=== PATIENT | female | born 1945 | race Caucasian/White ===

== ENCOUNTER 2016-05-31 09:50 | Outpatient (CLI) | payer MEDICARE, SELFPAY ==
[2016-05-31 11:24] LABS: #Basophils 0.1 thou/uL (0.0-0.2); #Eosinphils 0.3 thou/uL (0.0-0.7); #Lymphocytes 1.9 thou/uL (1.20-3.40); #Monocytes 0.6 thou/uL (0.11-0.59); #Neutrophils 5.2 thou/uL (1.40-6.50); %Eosinophils 4.1 % (0.0-10.0); %Lymphocytes 23.8 % (21.0-51.0); %Monocytes 7.3 % (0.0-10.0); %Neutrophils 63.9 % (42.0-75.0); Hemoglobin 15.4 g/dL (12.0-16.0); Mean Corpuscular HGB CONC 33.6 g/dL (32.0-36.0); Mean Corpuscular Volume 86.6 fl (81.0-99.0); Mean Platelet Volume 7.1 fL (7.4-10.4); Platelet Count 190 thou/uL (130-400); RBC Distribution Width 14.4 % (11.5-14.5); Red Blood Cell (RBC) Count 5.29 mill/uL (4.20-5.40); White Blood Cell (WBC) Count 8.1 thou/uL (4.8-10.8)
[2016-05-31 11:37] LABS: ALT (SGPT) 12 U/L (0-55); AST (SGOT) 13 U/L (5-34); Albumin 4.1 g/dL (3.4-4.8); Alkaline Phosphatase 86 U/L (40-150); Anion Gap 15 mmol/L (10-20); BUN (Urea Nitrogen) 12 mg/dL (9.8-20.1); Bilirubin, Total 0.4 mg/dL (0.2-1.2); Calc. Creatinine Clearance 0 mL/min (70-130); Carbon Dioxide 28 mmol/L (23-31); Cardiac Risk 3.6 (Less than 4.5); Chloride 100 mmol/L (98-107); Cholesterol 136 mg/dL (< 200 Desired); Estimated GFR-MDRD 70; Globulin 2.9 g/dL (2.4-3.5); Glucose 99 mg/dL (80-115); HDL Cholesterol 38 mg/dL (>60 Neg Risk); LDL Cholesterol, Calculated 73 mg/dL; Potassium 5.4 mmol/L (3.5-5.1); Sodium 138 mmol/L (136-145); Triglycerides 124 mg/dL (Less than 150)
== END 2016-05-31 09:51 | disposition home or self-care (01) ==
LOC: HPCALD 09:50
PROVIDERS: ATTEND Family Medicine
DX: E78.2 Mixed hyperlipidemia (principal); I10 Essential (primary) hypertension
CPT/HCPCS: 36415; 80053; 80061; 84443; 85025

== ENCOUNTER 2016-07-18 06:44 | Inpatient (IN) | payer MEDICARE ==
[2016-07-18 07:27] LABS: #Basophils 0.1 thou/uL (0.0-0.2); #Eosinphils 0.1 thou/uL (0.0-0.7); #Lymphocytes 1.1 thou/uL (1.20-3.40); #Monocytes 1.1 thou/uL (0.11-0.59); #Neutrophils 9.1 thou/uL (1.40-6.50); %Eosinophils 1.2 % (0.0-10.0); %Lymphocytes 9.4 % (21.0-51.0); %Monocytes 9.5 % (0.0-10.0); %Neutrophils 78.9 % (42.0-75.0); Hemoglobin 12.4 g/dL (12.0-16.0); Mean Corpuscular HGB CONC 33.2 g/dL (32.0-36.0); Mean Corpuscular Hemoglobin 27.6 pg (27.0-31.0); Mean Platelet Volume 6.3 fL (7.4-10.4); Platelet Count 229 thou/uL (130-400); RBC Distribution Width 13.4 % (11.5-14.5); Red Blood Cell (RBC) Count 4.48 mill/uL (4.20-5.40); White Blood Cell (WBC) Count 11.5 thou/uL (4.8-10.8)
[2016-07-18 07:39] LABS: ALT (SGPT) 14 U/L (8-55); AST (SGOT) 10 U/L (5-34); Albumin 3.6 g/dL (3.4-4.8); Alkaline Phosphatase 85 U/L (40-150); Anion Gap 16 mmol/L (10-20); BUN (Urea Nitrogen) 11 mg/dL (9.8-20.1); Bilirubin, Total 0.6 mg/dL (0.2-1.2); Calc. Creatinine Clearance 0 mL/min (70-130); Calcium 8.9 mg/dL (7.8-10.44); Carbon Dioxide 25 mmol/L (23-31); Chloride 94 mmol/L (98-107); Estimated GFR-MDRD 81; Globulin 3.5 g/dL (2.4-3.5); Glucose 122 mg/dL (83-110); Potassium 4.5 mmol/L (3.5-5.1); Protein, Total 7.1 g/dL (6.0-8.3); Sodium 130 mmol/L (136-145)
[2016-07-18 07:46] LABS: CKMB 2.2 ng/mL (0-6.6); Troponin I 0.013 ng/mL (< 0.028)
[2016-07-18] MEDS ORDERED: Magnesium Sulfate 2 GM/100 ML BAG ONE (07:47)
[2016-07-18] MEDS ORDERED: methylPREDNISolone Sod Succ/PF 125 MG/2 ML VIAL ONE ×5 (07:47→07:53)
[2016-07-18] MEDS ORDERED: Sodium Chloride 0.9% 10 ML ONE (07:56)
[2016-07-18] MEDS ORDERED: Albuterol Sulfate 1.25 MG/3 ML NEB ONE ×2 (08:28→08:30)
[2016-07-18] MEDS ORDERED: Albuterol Sulfate 2.5 mg/3 ml Neb ONE (08:31)
[2016-07-18 10:38] LABS: Bilirubin Negative (Negative); Blood, Urine Negative (Negative); Clarity Clear (Clear); Glucose, Urine (Dipstick) Negative (Negative); Leukocyte Negative (Negative); Nitrite Negative (Negative); Protein, Urine (Dipstick) Negative (Neg-Trace); Specific Gravity, Urine 1.015 (1.005-1.030); Urobilinogen 0.2 mg/dL (0.2-1.0)
[2016-07-18] MEDS ORDERED: Ondansetron ODT 4 MG TAB SL PRN (10:56)
[2016-07-18] MEDS ORDERED: HYDROcodone/Acetaminophen 5/325 mg Tablet PO PRN ×2 (10:56)
[2016-07-18] MEDS ORDERED: Ondansetron HCl/PF 4 MG/2 ML Vial IVP PRN (10:56)
[2016-07-18] MEDS ORDERED: Albuterol Sulfate 2.5 mg/3 ml Neb NEB PRN (11:07)
[2016-07-18] MEDS ORDERED: Bacitracin Zinc 1 Packet ONE (12:17)
[2016-07-18 12:25] LABS: RBC/HPF 0-3 HPF (0-3)
[2016-07-18 12:26] LABS: Bacteria/HPF Rare-Few HPF (None Seen); Squamous Epithelial 0-3 HPF (0-3); WBC/HPF 0-3 HPF (0-3)
[2016-07-18 14:07] VITALS: BMI 30.7
[2016-07-18] MEDS: Dextrose 5 %-0.45 % NaCl 1,000 ML IV SCH ×2 (15:50→19:30)
--- NOTE | 2016-07-18 17:19 | HP ---
CHIEF COMPLAINT: Cough and shortness of breath. HISTORY OF PRESENT ILLNESS: Ms. Andrews is a 71-year-old female with past medical history of COPD who states that for approximately 2 weeks, she suffered from a cough productive of green sputum. However, she was visiting her daughter in [place] at a graduation and did not seek medical treatment. She has had shortness of breath throughout the duration and approximately 1 week ago started to run fever with a T-max of 102-103. She presented to the ER today for treatment. The patient was found to be hypoxic with wheezing in all selby and rhonchi in the bases with a diagnoses of presumptive community- acquired pneumonia with COPD is a comorbidity. The patient is not currently O2 dependent and is requiring O2. PAST MEDICAL HISTORY: 1. COPD. 2. Hypertension. 3. Gastroesophageal reflux disease. 4. Major depression. 5. Hyperlipidemia. 6. Personal history of colon polyps. 7. Tobacco dependency. 8. Positive fecal immunohistochemical test with subsequent colonoscopy 01/2016 with repeat recommended in 3 years. PAST SURGICAL HISTORY: 1. Left arm 2008, cholecystectomy in 2006. 2. Bilateral tubal ligation. FAMILY HISTORY: Father with diabetes and coronary artery disease, mother with diabetes and coronary artery disease. Sister with diabetes and coronary artery disease. Sister with breast cancer diagnosed in her 60s. SOCIAL HISTORY: The patient is . Smokes 1-1/2 packs of cigarettes per day. Denies alcohol or illicit drug use. She lives with her son and his . ALLERGIES: PENICILLIN. CURRENT MEDICATIONS: 1. Atorvastatin 20 mg p.o. daily. 2. Nexium 40 mg p.o. daily. 3. Lisinopril 5 mg p.o. daily. 4. Albuterol HFA two puffs q.6 hours p.r.n. REVIEW OF SYSTEMS: GENERAL: Positive fever, malaise, chills, fatigue. HEENT: Denies vision changes. Denies nasal congestion, ear pain, sore throat, rhinorrhea. CARDIOVASCULAR: Admitted to chest tightness, but no overt chest pain. The tightness is increased with cough and deep breathing. No orthopnea, PND, leg edema. RESPIRATORY: Positive wheezing, positive shortness of breath, positive dyspnea on exertion, no hemoptysis, positive sputum yellow to green in color, cough for 2 weeks. Remainder as per HPI. GASTROINTESTINAL: Denies diarrhea, vomiting, constipation, melena, hematochezia , hematemesis. No abdominal pain. GENITOURINARY: Denies dysuria, frequent urination, gross hematuria, incomplete emptying. NEUROLOGIC: Denies slurred speech, seizures, focal weakness, diplopia. LYMPHATIC: Denies any lymph node enlargement or tenderness. PSYCHIATRIC: The patient has had increased symptoms of depression since being tapered down on her antidepressants in the last couple of weeks. Denies suicidal ideation. No anxiety. HEMATOLOGIC: Denies easy bleeding or bruising. PHYSICAL EXAMINATION: VITAL SIGNS: Temperature 98.3, pulse 101, respirations 24, O2 sat 90% on 2 liters, blood pressure 165/72. GENERAL: Well-developed, slightly overweight female, in no acute distress, able to speak in complete sentences, nasal cannula in place. Alert and oriented x3. HEENT: Normocephalic, atraumatic. Pupils equal, round, and reactive to light and accommodation. Extraocular muscles intact. Nares are patent without discharge. Tongue protrudes in the midline. NECK: Supple, without lymphadenopathy, thyromegaly, JVD or bruit. HEART: Regular rate and rhythm with distant heart sounds. No murmurs, clicks, rubs, or gallops. LUNGS: With diminished air entry throughout with bibasilar rhonchi. No wheezes appreciated. ABDOMEN: Positive bowel sounds in all four quadrants, soft, nontender, nondistended, no masses, guarding, or rebound tenderness. EXTREMITIES: No cyanosis, clubbing or edema. NEUROLOGICAL: Cranial nerves II through XII grossly intact with no focal deficits. LABORATORY DATA: White count 11.5, hemoglobin 12.4, hematocrit 37.2 with 78% neutrophils, 9% lymphocytes, platelets 229. Sodium 130, potassium 4.5, chloride 94, bicarb 25, BUN 11, creatinine 0.71, glucose 122, lactic acid 0.7, calcium 8.9, AST 10, ALT 14, alkaline phosphatase 85, CK-MB 2.2, troponin I 0.013, BNP 109, total protein 7.1, urinalysis is completely negative, blood culture shows, urine culture, urinalysis are all pending, chest x-ray shows a right lower lobe, possibly a left lower lobe infiltrates, consistent with community-acquired pneumonia. Radiology read is pending. EKG showed no ischemia per ER physician. ASSESSMENT AND PLAN: 1. Community-acquired pneumonia. Blood cultures have been performed. We will try to obtain sputum for Gram stain and culture. Treat with IV Levaquin 750 mg daily, we will give supplemental O2. We will qualify for home O2 is still requiring at discharge. We will continue neb treatments. 2. Chronic obstructive pulmonary disease. The patient receives a dose of steroids in the ER. She has no further wheezing on exam at this time. We will hold off on continued steroid administration at this time. We will continue neb treatments. 3. Depression. We will restart the patient's antidepressant during this hospitalization. 4. Hypoxia. O2 as per above. 5. Gastroesophageal reflux disease. We will place on PPI. 6. Hypertension. We will continue current regimen. 7. Hyperlipidemia. We will continue the patient's statin. 8. Prophylaxes. We will place the patient on PPI and SCDs. 9. Code status. The patient desires full code status at this time. MTDD
--- NOTE | 2016-07-18 18:17 | RAD ---
PORTABLE CHEST: Date: 07-18-16 An AP portable film at 0712 is compared with a 03-10-15 study. FINDINGS: The heart is normal in size. There are infiltrative changes around the right hilum that also extend along the minor fissure. Changes are also suggested in the left lower lobe that are presumably infil trative. No large effusions are seen. The lung apices are clear. I am not convinced the vessels are really congested. The patient should be probably treated for infection and then a follow up x-ray to clearing obtained. If she does improve, than a CT should be done to better display the mediastinum and make sure there is no pathology, particularly in the right hilar region. IMPRESSION: Infiltrative changes in the right perihilar region and left lower lobe. Further follow up is require d. POS: HOME
[2016-07-18] MEDS: Atorvastatin Calcium 10 MG TAB PO SCH (20:38)
[2016-07-18] MEDS: Nicotine 14 MG PATCH TOP SCH (20:40)
[2016-07-18] MEDS: Acetaminophen 325 MG TAB PO PRN (20:44)
[2016-07-19] MEDS: Dextrose 5 %-0.45 % NaCl 1,000 ML IV SCH (00:57)
[2016-07-19] MEDS: Acetaminophen 325 MG TAB PO PRN ×3 (05:09→20:55)
[2016-07-19 06:19] LABS: #Basophils 0.1 thou/uL (0.0-0.2); #Monocytes 0.8 thou/uL (0.11-0.59); #Neutrophils 13.7 thou/uL (1.40-6.50); %Basophils 0.5 % (0.0-1.0); %Lymphocytes 6.1 % (21.0-51.0); %Monocytes 5.4 % (0.0-10.0); Hemoglobin 11.9 g/dL (12.0-16.0); Mean Corpuscular Hemoglobin 27.8 pg (27.0-31.0); Mean Corpuscular Volume 84.3 fl (81.0-99.0); Mean Platelet Volume 6.8 fL (7.4-10.4); Platelet Count 244 thou/uL (130-400); RBC Distribution Width 13.3 % (11.5-14.5); Red Blood Cell (RBC) Count 4.29 mill/uL (4.20-5.40); White Blood Cell (WBC) Count 15.6 thou/uL (4.8-10.8)
[2016-07-19 06:22] LABS: Anion Gap 16 mmol/L (10-20); BUN (Urea Nitrogen) 10 mg/dL (9.8-20.1); Calc. Creatinine Clearance 102 mL/min (70-130); Carbon Dioxide 25 mmol/L (23-31); Chloride 96 mmol/L (98-107); Estimated GFR-MDRD 81; Glucose 134 mg/dL (83-110); Potassium 5.3 mmol/L (3.5-5.1); Sodium 132 mmol/L (136-145)
--- NOTE | 2016-07-19 07:29 | RAD ---
CHEST 2 VIEWS: DATE: 07/19/16. COMPARISON: Comparison is made with the 07/18 study. PA and lateral views show infiltrative changes in the lingu la on the left and some in the right perihilar region and along the minor fissure. The right hilum is still a little prominent in size. There could be some adenopathy here. Pneumonia is presumed as the cause of these findings. Changes since yesterday are minimal. The vasculature seems a little less prominent on today's film than yesterday, so there also could have been a very slight congestiv e element. The heart size is normal today. There are no effusions. IMPRESSION: Infiltrative changes as noted. Little change since yesterday, except the vasculature may be a littl e less prominent. The patient needs to be followed to complete resolution, and if that does not occ ur, then a CT should be done. POS: HOME
[2016-07-19] MEDS ORDERED: Lisinopril 5 MG TAB PO SCH (09:00)
[2016-07-19] MEDS ORDERED: Simethicone Chewable 80 MG TAB PO PRN (09:00)
[2016-07-19] MEDS: Escitalopram Oxalate 20 mg Tablet PO SCH (09:12)
[2016-07-19] MEDS: Aspirin 325 MG TAB PO SCH (09:12)
[2016-07-19] MEDS: UMECLIDINIUM BRM INH SCH (09:14)
[2016-07-19] MEDS: VILANTEROL TR INH SCH (09:14)
[2016-07-19] MEDS: Nicotine 14 MG PATCH TOP SCH (20:49)
[2016-07-19] MEDS: Atorvastatin Calcium 10 MG TAB PO SCH (20:50)
[2016-07-20 06:37] LABS: #Basophils 0.1 thou/uL (0.0-0.2); #Eosinphils 0.1 thou/uL (0.0-0.7); #Lymphocytes 1.4 thou/uL (1.20-3.40); #Monocytes 0.6 thou/uL (0.11-0.59); #Neutrophils 7.1 thou/uL (1.40-6.50); %Basophils 1.4 % (0.0-1.0); %Eosinophils 0.8 % (0.0-10.0); %Lymphocytes 15.3 % (21.0-51.0); %Monocytes 6.7 % (0.0-10.0); %Neutrophils 75.8 % (42.0-75.0); Hemoglobin 12.8 g/dL (12.0-16.0); Mean Corpuscular HGB CONC 32.8 g/dL (32.0-36.0); Mean Corpuscular Hemoglobin 27.9 pg (27.0-31.0); Mean Platelet Volume 6.2 fL (7.4-10.4); Platelet Count 289 thou/uL (130-400); RBC Distribution Width 13.3 % (11.5-14.5); White Blood Cell (WBC) Count 9.4 thou/uL (4.8-10.8)
[2016-07-20 06:47] LABS: Anion Gap 13 mmol/L (10-20); BUN (Urea Nitrogen) 9 mg/dL (9.8-20.1); Calc. Creatinine Clearance 104 mL/min (70-130); Calcium 8.7 mg/dL (7.8-10.44); Carbon Dioxide 29 mmol/L (23-31); Chloride 100 mmol/L (98-107); Estimated GFR-MDRD 82; Glucose 94 mg/dL (83-110); Potassium 5.3 mmol/L (3.5-5.1); Sodium 137 mmol/L (136-145)
[2016-07-20] MEDS: Escitalopram Oxalate 20 mg Tablet PO SCH (08:57)
[2016-07-20] MEDS: Aspirin 325 MG TAB PO SCH (08:57)
[2016-07-20] MEDS: UMECLIDINIUM BRM INH SCH (09:04)
[2016-07-20] MEDS: VILANTEROL TR INH SCH (09:04)
[2016-07-20] MEDS: Nicotine 14 MG PATCH TOP SCH (20:36)
[2016-07-20] MEDS: Atorvastatin Calcium 10 MG TAB PO SCH (20:36)
[2016-07-21 05:10] LABS: Anion Gap 14 mmol/L (10-20); BUN (Urea Nitrogen) 9 mg/dL (9.8-20.1); Calc. Creatinine Clearance 97 mL/min (70-130); Calcium 8.8 mg/dL (7.8-10.44); Carbon Dioxide 30 mmol/L (23-31); Chloride 99 mmol/L (98-107); Estimated GFR-MDRD 76; Glucose 109 mg/dL (83-110); Potassium 4.7 mmol/L (3.5-5.1); Sodium 138 mmol/L (136-145)
[2016-07-21] MEDS: Escitalopram Oxalate 20 mg Tablet PO SCH (09:21)
[2016-07-21] MEDS: Aspirin 325 MG TAB PO SCH (09:22)
[2016-07-21] MEDS: Lisinopril 5 MG TAB PO SCH (09:34)
[2016-07-21] MEDS: UMECLIDINIUM BRM INH SCH (09:36)
[2016-07-21] MEDS: VILANTEROL TR INH SCH (09:36)
--- NOTE | 2016-07-21 13:19 | DIS ---
ADMISSION DIAGNOSES: 1. Community-acquired pneumonia. 2. Hyponatremia. 3. Chronic obstructive pulmonary disease. 4. Depression. 5. Tobacco abuse. DISCHARGE DIAGNOSES: 1. Community-acquired pneumonia. 2. Hyponatremia. 3. Chronic obstructive pulmonary disease. 4. Depression. 5. Tobacco abuse. 6. Hyperkalemia. ATTENDING PHYSICIAN: Dr. Alyssa Cage PROCEDURES: 1. Chest x-ray date of admission shows infiltrative changes in the right perihilar region and left lower lobe. 2. Chest x-ray 07/19/2016 shows infiltrative changes. Little change since yesterday except the vas culature may be a little less prominent. 3. White count day of admission 11.5 down to 9.4 day prior to transfer. 4. Sodium on admission 130, increased to 138 with fluid restriction and IV fluids. 5. Potassium 5.3 date following admission down to 4.7 on the date of transfer. 6. Cardiac enzymes negative. 7. BNP 109. 8. Lactic acid 0.7. 9. Blood culture x2 negative. 10. Urine culture negative. 11. Respiratory culture pending. HISTORY AND PHYSICAL EXAMINATION: Please see dictated report from the date of admission. HOSPITAL COURSE: Ms. Andrews is a 71-year-old female with past medical history of COPD who had been experiencing 2 weeks of increased shortness of breath and sputum productive of green thick mucus. She was admitted for community-acquired pneumonia and started on Levaquin. This has been c ontinued throughout her hospitalization. Her white count has improved. Her chest x-ray has remaine d stable. Her oxygenation has remained dependent on O2 at 2 liters per minute. Symptomatically, th e patient has no costochondral pain when she coughs like she did at admission, she is having less sp utum and the color of it has cleared. The consistency of it is thinner. She still has some signifi cant dyspnea on exertion and some deconditioning related to her hospital stay. Therefore, it was re commended we transfer her to our snf unit for continued IV antibiotics, follow up to res olution of her chest x-ray, continued O2 support. We will qualify her for home O2 if needed during the stay. We will order a physical therapy evaluation. Patient with hyponatremia on admission. She was given IV fluids and fluid restriction and this subs equently resolved. The patient developed some hyperkalemia during her hospitalization. This improved holding her CARLA i nhibitor. This has been restarted at half the dose 2.5 mg daily. The patient with a history of COPD and was given IV steroids in the emergency room. However, I have not noted any wheezing throughout her hospitalization and do not feel like this is a contributing f actor to her condition. Therefore, I have not had her on steroids during this admission. The patient with history of tobacco abuse. She has been counseled smoking cessation and has been on nicotine patch and has been doing well on that. The patient with reported depression at admission. She has been started back on escitalopram 10 mg daily. DISPOSITION: Transfer to swing bed. CONDITION: Stable. MEDICATIONS: 1. Tylenol 650 mg p.o. q.4 h. p.r.n. 2. [place] 5/325 1-2 p.o. q.6 h. p.r.n. pain. 3. Ventolin 2.5 mg nebs q.4 h. p.r.n. 4. DuoNeb 3 mL nebs q.6 h. 5. Aspirin 325 mg p.o. daily. 6. Lipitor 20 mg p.o. at bedtime. 7. Lexapro 10 mg p.o. daily. 8. Levaquin 750 mg IV daily. 9. Zestril 2.5 mg p.o. daily. 10. Nicoderm patch 14 mg topically q.24 hours. 11. Zofran 4 mg IV or sublingual q.6 hours p.r.n. nausea. 12. Protonix 40 mg p.o. daily. 13. Simethicone 120 mg p.o. daily p.r.n. 14. Anoro Ellipta 1 inhalation daily. The patient will be instructed at her swing bed discharge to follow up with me in approximately 10-1 4 days post-discharge.
[2016-07-21] MEDS: Atorvastatin Calcium 10 MG TAB PO SCH (20:17)
[2016-07-21] MEDS: Nicotine 14 MG PATCH TOP SCH (20:18)
[2016-07-21 20:38] VITALS: TEMP 98.6
[2016-07-22 06:27] VITALS: BP 158/72
--- NOTE | 2016-07-22 07:12 | RAD ---
CHEST 2 VIEWS: Date: 07/22/16 There has been definite improvement in the infiltrates in each lung since 07/19/16. While residual f indings are still present, particularly in the lingula on the left, the infiltrates are in the proce ss of resolving. The vasculature is less prominent today than it was before as well. There are no la rge effusions. The heart size is normal. IMPRESSION: Infiltrates still present, but definitely improved since 07/19/16. POS: HOME
[2016-07-22] MEDS: Aspirin 325 MG TAB PO SCH (08:42)
[2016-07-22] MEDS: Lisinopril 5 MG TAB PO SCH (08:42)
[2016-07-22] MEDS: Escitalopram Oxalate 20 mg Tablet PO SCH (08:44)
[2016-07-22] MEDS: VILANTEROL TR INH SCH (08:46)
[2016-07-22] MEDS: UMECLIDINIUM BRM INH SCH (08:46)
== END 2016-07-22 16:45 | disposition home or self-care (01) | DRG 190 ==
LOC: BURERS 06:44 → BURMED 08:15
PROVIDERS: ADMIT Family Medicine; ATTEND Family Medicine
DX: J44.0 Chronic obstructive pulmonary disease with (acute) lower respiratory infection (principal); J18.9 Pneumonia, unspecified organism; Z99.81 Dependence on supplemental oxygen; E87.1 Hypo-osmolality and hyponatremia; E87.5 Hyperkalemia; F32.9 Major depressive disorder, single episode, unspecified; F17.210 Nicotine dependence, cigarettes, uncomplicated; R09.02 Hypoxemia; I10 Essential (primary) hypertension; K21.9 Gastro-esophageal reflux disease without esophagitis; Z88.0 Allergy status to penicillin
CPT/HCPCS: 36415; 71010; 71020; 80048; 80053; 81001; 82553; 83605; 83880; 84484; 85025; 87040; 87070; 87086; 87205; 93005; 94640; 94760; 96361; 96365; 96375; A4216; J1956; J2930; J3475; J7611; J7620

== ENCOUNTER 2016-08-15 07:50 | Outpatient (CLI) | payer MEDICARE ==
--- NOTE | 2016-08-16 07:28 | RAD ---
CHEST TWO VIEWS: Date: 08-15-16 Comparison: 07-22-16 that showed a lingular pneumonia on the left. FINDINGS: There has been good resolution of the pneumonia. No acute pulmonary infiltrates are appreciated. No masses or effusions are seen. The cardiac size is stable. There is no vascular congestion. The trach ea is midline. Faint calcification is seen in the aortic arch. IMPRESSION: Lingular pneumonia essentially resolved. POS: HOME
== END 2016-08-15 07:51 | disposition home or self-care (01) ==
LOC: BURRAD 07:50
PROVIDERS: ATTEND Family Medicine
DX: J18.9 Pneumonia, unspecified organism (principal)
CPT/HCPCS: 71020

== ENCOUNTER 2017-04-23 09:31 | Emergency (ER) | payer MEDICARE ==
[2017-04-23] MEDS ORDERED: predniSONE 20 MG TAB ONE (09:41)
== END 2017-04-23 10:05 | disposition home or self-care (01) ==
LOC: BURERS 09:31
DX: J44.1 Chronic obstructive pulmonary disease with (acute) exacerbation (principal); N39.0 Urinary tract infection, site not specified; E78.5 Hyperlipidemia, unspecified; I10 Essential (primary) hypertension; F17.210 Nicotine dependence, cigarettes, uncomplicated; Z79.899 Other long term (current) drug therapy; Z79.82 Long term (current) use of aspirin
CPT/HCPCS: 94640; 94760; J7506; J7620

== ENCOUNTER 2018-07-22 07:51 | Emergency (ER) | payer MEDICARE ==
[2018-07-22] MEDS ORDERED: Aspirin Chewable 81 MG TAB ONE (08:34)
[2018-07-22] MEDS ORDERED: Ondansetron PF 4 MG/2 ML Vial ONE (08:34)
[2018-07-22 08:37] LABS: #Basophils 0.1 thou/uL (0.0-0.2); #Eosinphils 0.2 thou/uL (0.0-0.7); #Lymphocytes 1.2 thou/uL (1.20-3.40); #Monocytes 0.5 thou/uL (0.11-0.59); #Neutrophils 4.7 thou/uL (1.40-6.50); %Basophils 1.7 % (0.0-1.0); %Eosinophils 2.4 % (0.0-10.0); %Monocytes 7.6 % (0.0-10.0); %Neutrophils 70.4 % (42.0-75.0); Hemoglobin 13.3 g/dL (12.0-16.0); Mean Corpuscular HGB CONC 32.2 g/dL (32.0-36.0); Mean Corpuscular Hemoglobin 26.3 pg (27.0-31.0); Mean Corpuscular Volume 81.8 fL (78.0-98.0); Mean Platelet Volume 7.2 fL (7.4-10.4); Platelet Count 239 thou/uL (130-400); RBC Distribution Width 12.7 % (11.5-14.5); Red Blood Cell (RBC) Count 5.05 mill/uL (4.20-5.40); White Blood Cell (WBC) Count 6.7 thou/uL (4.8-10.8)
[2018-07-22 08:51] LABS: ALT (SGPT) 20 U/L (8-55); AST (SGOT) 32 U/L (5-34); Albumin 4.5 g/dL (3.4-4.8); Alkaline Phosphatase 83 U/L (40-150); Anion Gap 17 mmol/L (10-20); BUN (Urea Nitrogen) 11 mg/dL (9.8-20.1); Bilirubin, Total 0.5 mg/dL (0.2-1.2); Calc. Creatinine Clearance 0 mL/min (70-130); Calcium 9.5 mg/dL (7.8-10.44); Carbon Dioxide 24 mmol/L (23-31); Chloride 83 mmol/L (98-107); Estimated GFR-MDRD 58; Glucose 96 mg/dL (83-110); Potassium 5.9 mmol/L (3.5-5.1); Protein, Total 7.5 g/dL (6.0-8.3)
[2018-07-22 08:56] LABS: Sodium 118 mmol/L (136-145)
--- NOTE | 2018-07-22 09:10 | RAD ---
PORTABLE CHEST 1 VIEW: DATE: 07/22/2018. TIME: 8:12 a.m. HISTORY: Cough, chest pain, shortness of breath. FINDINGS/IMPRESSION: Comparison is made with the exam of 08/15/2016. The heart size is borderline. The lungs are expanded without lobar consolidation, pneumothoraces, fr ank pulmonary edema, or pleural effusions. POS: [facility]
[2018-07-22] MEDS ORDERED: Albuterol Sulfate 1.25 MG/3 ML NEB ONE (09:40)
[2018-07-22] MEDS ORDERED: methylPREDNISolone Sod Succ/PF 125 MG/2 ML VIAL ONE (09:40)
[2018-07-22 11:06] LABS: Clarity SLIGHTLY (Clear)
[2018-07-22 11:07] LABS: Bilirubin Small (Negative); Blood, Urine Trace (Negative); Glucose, Urine (Dipstick) Negative (Negative); Leukocyte Small (Negative); Nitrite Negative (Negative); Protein, Urine (Dipstick) Trace mg/dL (Neg-Trace); Specific Gravity, Urine 1.015 (1.005-1.030)
[2018-07-22 11:11] LABS: Bacteria/HPF Rare-Few HPF (None Seen); Crystals/HPF None Seen HPF (Negative); Hyaline Casts/LPF NONE SEEN LPF (0-3 Hyaline); Other Casts/LPF None Seen LPF (0-3 Hyaline); Oval Fat Bodies/HPF None Seen HPF (None Seen); RBC/HPF 0-3 HPF (0-3); Renal Epithelial None Seen HPF (0-3); Sperm/HPF None Seen HPF (None Seen); Squamous Epithelial 0-3 HPF (0-3); Transitional Epithelial NONE SEEN HPF (0-3); Trichomonas/HPF None Seen HPF (None Seen); WBC/HPF 0-3 HPF (0-3); Yeast-All Forms None Seen HPF (None Seen)
== END 2018-07-22 09:23 | disposition short-term general hospital (02) ==
LOC: BURERS 07:51
DX: J44.1 Chronic obstructive pulmonary disease with (acute) exacerbation (principal); E87.5 Hyperkalemia; E87.1 Hypo-osmolality and hyponatremia; E78.5 Hyperlipidemia, unspecified; F17.210 Nicotine dependence, cigarettes, uncomplicated; I10 Essential (primary) hypertension; Z79.899 Other long term (current) drug therapy; Z79.82 Long term (current) use of aspirin; Z79.51 Long term (current) use of inhaled steroids
CPT/HCPCS: 71045; 80053; 81003; 81015; 83605; 83880; 84484; 85025; 87040; 93005; 94640; 94760; J1956; J2405; J2930; J7620

== ENCOUNTER 2018-07-29 10:35 | Emergency (ER) | payer MEDICARE ==
[2018-07-29] MEDS ORDERED: Aspirin Chewable 81 MG TAB ONE (11:08)
[2018-07-29 11:17] LABS: #Basophils 0.1 thou/uL (0.0-0.2); #Neutrophils 14.6 thou/uL (1.40-6.50); %Basophils 0.8 % (0.0-1.0); %Eosinophils 0.3 % (0.0-10.0); %Monocytes 5.6 % (0.0-10.0); %Neutrophils 82.4 % (42.0-75.0); Mean Corpuscular HGB CONC 33.3 g/dL (32.0-36.0); Mean Corpuscular Hemoglobin 27.6 pg (27.0-31.0); Mean Corpuscular Volume 82.8 fL (78.0-98.0); Mean Platelet Volume 5.9 fL (7.4-10.4); Platelet Count 283 thou/uL (130-400); RBC Distribution Width 13.4 % (11.5-14.5); Red Blood Cell (RBC) Count 4.71 mill/uL (4.20-5.40); White Blood Cell (WBC) Count 17.7 thou/uL (4.8-10.8)
[2018-07-29] MEDS ORDERED: Ibuprofen 200 MG TAB ONE (11:22)
[2018-07-29 11:23] LABS: Base Excess-Venous 3.4 mmol/L (-2.0 to 3.0); Bicarbonate (HCO3v) 28.9 mmol/L (22.0-28.0); Calcium, Ionized 1.12 mmol/L (See Comments:); Chloride 97 mmol/L (98-107); Hemoglobin - Calc 14.3 g/dL (12.0-16.0); Potassium 3.9 mmol/L (3.5-5.1); Sodium 135 mmol/L (138-145); T. Carbon Dioxide 30.3 mmol/L (22.0-28.0); vO2 Saturation-calc 77.3 % (60.0-85.0)
[2018-07-29 11:33] LABS: ALT (SGPT) 30 U/L (8-55); AST (SGOT) 15 U/L (5-34); Albumin 3.8 g/dL (3.4-4.8); Alkaline Phosphatase 61 U/L (40-150); Anion Gap 13 mmol/L (10-20); BUN (Urea Nitrogen) 24 mg/dL (9.8-20.1); Bilirubin, Total 0.4 mg/dL (0.2-1.2); Calc. Creatinine Clearance 0 mL/min (70-130); Calcium 9.1 mg/dL (7.8-10.44); Carbon Dioxide 28 mmol/L (23-31); Chloride 98 mmol/L (98-107); Estimated GFR-MDRD 58; Globulin 2.4 g/dL (2.4-3.5); Glucose 120 mg/dL (83-110); Lipase 48 U/L (8-78); Potassium 4.1 mmol/L (3.5-5.1); Protein, Total 6.2 g/dL (6.0-8.3); Sodium 135 mmol/L (136-145)
[2018-07-29 11:50] LABS: CKMB 3.2 ng/mL (0-6.6)
--- NOTE | 2018-07-29 18:34 | RAD ---
PORTABLE CHEST: Date: 07/29/18 An AP portable film at 1109 hours is compared with the 02/09/15 study. The patient is turned to the side, which probably explains the left hilar prominence. The heart size is stable. No vascular congestion, edema, or pleural effusion seen. Lungs are clear. IMPRESSION: No acute thoracic finding. POS: HOME
== END 2018-07-29 12:00 | disposition short-term general hospital (02) ==
LOC: BURERS 10:35
DX: R07.89 Other chest pain (principal); E78.5 Hyperlipidemia, unspecified; I10 Essential (primary) hypertension; F32.9 Major depressive disorder, single episode, unspecified; F17.210 Nicotine dependence, cigarettes, uncomplicated; Z79.899 Other long term (current) drug therapy; Z79.82 Long term (current) use of aspirin
CPT/HCPCS: 71045; 80053; 82330; 82553; 82803; 83690; 83880; 84484; 85025; 93005

== ENCOUNTER 2018-09-15 07:53 | Emergency (ER) | payer MEDICARE ==
--- NOTE | 2018-09-15 08:30 | RAD ---
EXAM: Chest 2 views: HISTORY: Dyspnea COMPARISON: 08/15/2016 FINDINGS: There is a normal-sized cardiomediastinal silhouette. There is no evidence of consolidation, mass, or pleural effusion. The bones are unremarkable. IMPRESSION: No evidence of acute cardiopulmonary disease
[2018-09-15 08:42] LABS: #Basophils 0.1 thou/uL (0.0-0.2); #Eosinphils 0.2 thou/uL (0.0-0.7); #Lymphocytes 1.6 thou/uL (1.20-3.40); #Monocytes 0.5 thou/uL (0.11-0.59); #Neutrophils 6.4 thou/uL (1.40-6.50); %Basophils 1.3 % (0.0-1.0); %Eosinophils 2.2 % (0.0-10.0); %Lymphocytes 17.8 % (21.0-51.0); %Monocytes 5.7 % (0.0-10.0); %Neutrophils 72.9 % (42.0-75.0); Hemoglobin 12.7 g/dL (12.0-16.0); Mean Corpuscular HGB CONC 31.5 g/dL (32.0-36.0); Mean Corpuscular Hemoglobin 27.5 pg (27.0-31.0); Mean Corpuscular Volume 87.3 fL (78.0-98.0); Platelet Count 224 thou/uL (130-400); RBC Distribution Width 14.2 % (11.5-14.5); Red Blood Cell (RBC) Count 4.63 mill/uL (4.20-5.40); White Blood Cell (WBC) Count 8.8 thou/uL (4.8-10.8)
[2018-09-15 08:46] LABS: ALT (SGPT) 16 U/L (8-55); AST (SGOT) 17 U/L (5-34); Alkaline Phosphatase 74 U/L (40-150); Anion Gap 16 mmol/L (10-20); BUN (Urea Nitrogen) 10 mg/dL (9.8-20.1); Bilirubin, Total 0.4 mg/dL (0.2-1.2); Calc. Creatinine Clearance 0 mL/min (70-130); Calcium 9.6 mg/dL (7.8-10.44); Carbon Dioxide 27 mmol/L (23-31); Chloride 97 mmol/L (98-107); Estimated GFR-MDRD 68; Globulin 2.9 g/dL (2.4-3.5); Glucose 101 mg/dL (83-110); Protein, Total 6.9 g/dL (6.0-8.3); Sodium 135 mmol/L (136-145)
[2018-09-15 09:04] LABS: CKMB 3.5 ng/mL (0-6.6)
[2018-09-15] MEDS ORDERED: methylPREDNISolone Sod Succ/PF 125 MG/2 ML VIAL ONE (09:05)
[2018-09-15] MEDS ORDERED: Sodium Chloride 0.9% 100 ML ONE (09:05)
[2018-09-15] MEDS ORDERED: cefTRIAXone\\ROCEPHIN 2 GM VIAL ONE (09:05)
== END 2018-09-15 09:48 | disposition home or self-care (01) ==
LOC: BURERS 07:53
DX: J44.1 Chronic obstructive pulmonary disease with (acute) exacerbation (principal); I10 Essential (primary) hypertension; E78.00 Pure hypercholesterolemia, unspecified; F32.9 Major depressive disorder, single episode, unspecified; F17.210 Nicotine dependence, cigarettes, uncomplicated; Z79.82 Long term (current) use of aspirin; Z79.899 Other long term (current) drug therapy
CPT/HCPCS: 36415; 71046; 80053; 82553; 83605; 83880; 84484; 85025; 85379; 87040; 87804; 93005; 94640; 94760; 96365; 96375; J0696; J2930; J3490; J7620

== ENCOUNTER 2018-09-20 10:48 | Emergency (ER) | payer MEDICARE ==
[2018-09-20 11:20] LABS: #Basophils 0.1 thou/uL (0.0-0.2); #Monocytes 0.4 thou/uL (0.11-0.59); #Neutrophils 12.4 thou/uL (1.40-6.50); %Basophils 0.9 % (0.0-1.0); %Eosinophils 0.3 % (0.0-10.0); %Lymphocytes 7.2 % (21.0-51.0); %Monocytes 3.1 % (0.0-10.0); %Neutrophils 88.6 % (42.0-75.0); Hemoglobin 12.8 g/dL (12.0-16.0); Mean Corpuscular HGB CONC 31.9 g/dL (32.0-36.0); Mean Corpuscular Hemoglobin 27.5 pg (27.0-31.0); Mean Corpuscular Volume 85.9 fL (78.0-98.0); Mean Platelet Volume 7.1 fL (7.4-10.4); Platelet Count 255 thou/uL (130-400); Red Blood Cell (RBC) Count 4.66 mill/uL (4.20-5.40)
[2018-09-20 11:35] LABS: ALT (SGPT) 13 U/L (8-55); AST (SGOT) 12 U/L (5-34); Albumin 4.1 g/dL (3.4-4.8); Alkaline Phosphatase 66 U/L (40-150); Anion Gap 14 mmol/L (10-20); BUN (Urea Nitrogen) 16 mg/dL (9.8-20.1); Bilirubin, Total 0.5 mg/dL (0.2-1.2); Calc. Creatinine Clearance 0 mL/min (70-130); Calcium 9.4 mg/dL (7.8-10.44); Carbon Dioxide 29 mmol/L (23-31); Chloride 93 mmol/L (98-107); Estimated GFR-MDRD 64; Glucose 127 mg/dL (83-110); Lipase 50 U/L (8-78); Protein, Total 7.1 g/dL (6.0-8.3); Sodium 131 mmol/L (136-145)
--- NOTE | 2018-09-20 12:31 | RAD ---
PA AND LATERAL CHEST: History: Dyspnea. FINDINGS/IMPRESSION: Comparison is made with exam dated 09-15-18. The heart size is normal. Lungs are expanded with stable chronic changes. No lobar consolidation, pne umothoraces, sreekanth pulmonary edema or pleural effusions are seen. There are degenerative changes of t he spine. POS: [facility]
== END 2018-09-20 12:07 | disposition home or self-care (01) ==
LOC: BURERS 10:48
DX: J18.1 Lobar pneumonia, unspecified organism (principal); B37.0 Candidal stomatitis; I10 Essential (primary) hypertension; J44.9 Chronic obstructive pulmonary disease, unspecified; E78.00 Pure hypercholesterolemia, unspecified; F17.210 Nicotine dependence, cigarettes, uncomplicated; Z79.899 Other long term (current) drug therapy
CPT/HCPCS: 36415; 71046; 80053; 83690; 84484; 85025; 93005; 94760

== ENCOUNTER 2018-09-24 05:05 | Emergency (ER) | payer MEDICARE ==
--- NOTE | 2018-09-24 07:31 | RAD ---
LEFT FOOT 3 VIEWS: Date: 09/24/18 No overt fracture seen. All bones appear intact. Little periosteal prominence along the third metatar silvana shaft is probably age-related and not connected with current trauma. Soft tissue swelling is seen on the dorsum of the foot. The tarsal bones all appear intact. The small irregularity on the anterio r dorsal part of the talus could be from old trauma. Calcaneal spur was seen. IMPRESSION: No acute bony findings. POS: HOME
== END 2018-09-24 05:55 | disposition home or self-care (01) ==
LOC: BURERS 05:05
DX: S93.602A Unspecified sprain of left foot, initial encounter (principal); I10 Essential (primary) hypertension; J44.9 Chronic obstructive pulmonary disease, unspecified; E78.00 Pure hypercholesterolemia, unspecified; F32.9 Major depressive disorder, single episode, unspecified; F17.210 Nicotine dependence, cigarettes, uncomplicated; Z79.899 Other long term (current) drug therapy; Z79.82 Long term (current) use of aspirin; W01.0XXA Fall on same level from slipping, tripping and stumbling without subsequent striking against object, initial encounter
CPT/HCPCS: 99283

== ENCOUNTER 2018-09-25 11:20 | Inpatient (IN) | payer MEDICARE ==
[2018-09-25] MEDS ORDERED: Albuterol Sulfate 1.25 MG/3 ML NEB ONE (11:45)
[2018-09-25 12:02] LABS: #Basophils 0.1 thou/uL (0.0-0.2); #Eosinphils 0.1 thou/uL (0.0-0.7); #Lymphocytes 1.9 thou/uL (1.20-3.40); #Monocytes 0.7 thou/uL (0.11-0.59); #Neutrophils 8.2 thou/uL (1.40-6.50); %Basophils 1.1 % (0.0-1.0); %Eosinophils 0.7 % (0.0-10.0); %Monocytes 6.3 % (0.0-10.0); %Neutrophils 74.9 % (42.0-75.0); Hemoglobin 13.2 g/dL (12.0-16.0); Mean Corpuscular HGB CONC 32.3 g/dL (32.0-36.0); Mean Corpuscular Hemoglobin 27.6 pg (27.0-31.0); Mean Corpuscular Volume 85.4 fL (78.0-98.0); Mean Platelet Volume 6.7 fL (7.4-10.4); Platelet Count 257 thou/uL (130-400); RBC Distribution Width 13.5 % (11.5-14.5); Red Blood Cell (RBC) Count 4.78 mill/uL (4.20-5.40); White Blood Cell (WBC) Count 10.9 thou/uL (4.8-10.8)
[2018-09-25 12:12] LABS: ALT (SGPT) 20 U/L (8-55); AST (SGOT) 20 U/L (5-34); Albumin 4.1 g/dL (3.4-4.8); Alkaline Phosphatase 62 U/L (40-150); Anion Gap 17 mmol/L (10-20); BUN (Urea Nitrogen) 20 mg/dL (9.8-20.1); Bilirubin, Total 0.7 mg/dL (0.2-1.2); Calc. Creatinine Clearance 0 mL/min (70-130); Calcium 9.6 mg/dL (7.8-10.44); Carbon Dioxide 28 mmol/L (23-31); Chloride 92 mmol/L (98-107); Estimated GFR-MDRD 42; Globulin 3.2 g/dL (2.4-3.5); Glucose 110 mg/dL (83-110); Potassium 4.7 mmol/L (3.5-5.1); Protein, Total 7.3 g/dL (6.0-8.3); Sodium 132 mmol/L (136-145)
[2018-09-25] MEDS ORDERED: HYDROcodone/Acetaminophen 5/325 mg Tablet ONE (12:19)
[2018-09-25] MEDS ORDERED: Sodium Chloride 0.9% 100 ML ONE (12:20)
[2018-09-25] MEDS ORDERED: Ketorolac Tromethamine 30 MG/ML VIAL ONE (12:20)
[2018-09-25] MEDS ORDERED: cefTRIAXone\\ROCEPHIN 2 GM VIAL ONE (12:20)
[2018-09-25 12:30] LABS: CKMB 4.9 ng/mL (0-6.6)
[2018-09-25 13:32] VITALS: BMI 29.3
[2018-09-25] MEDS ORDERED: Ondansetron ODT 4 MG TAB SL PRN (13:46)
[2018-09-25] MEDS ORDERED: Acetaminophen 325 MG TAB PO PRN (13:46)
[2018-09-25] MEDS ORDERED: Ondansetron PF 4 MG/2 ML Vial IVP PRN (13:46)
[2018-09-25] MEDS ORDERED: Albuterol Sulfate 2.5 mg/3 ml Neb NEB PRN (13:52)
[2018-09-25] MEDS ORDERED: Dextrose 5 %-0.45 % NaCl 1,000 ML IV SCH (14:00)
[2018-09-25] MEDS ORDERED: Sodium Chloride 0.9% 1,000 ML IV SCH (14:00)
[2018-09-25] MEDS: methylPREDNISolone Sod Succ 40 MG VIAL IVP SCH ×2 (14:18→22:26)
[2018-09-25] MEDS: ALPRAZolam 0.5 MG TAB PO PRN (15:51)
[2018-09-25 15:58] LABS: Lactic Acid 1.6 mmol/L (0.5-2.2)
[2018-09-25] MEDS ORDERED: Nicotine 21 MG PATCH TD SCH (16:00)
--- NOTE | 2018-09-25 18:13 | RAD ---
PORTABLE CHEST: 09/25/18 An AP portable film at 1134 is compared with an 09/20/18 study. There is a linear streak extending from the right hilum towards the pleural surface. This could eithe r be a stripe of atelectasis or a small amount of fluid in the minor fissure. It is a new finding com pared to the prior study. A little bit of lingular streaking is present but actually less than seen o n the prior exam. No new consolidations, or effusions were seen. The vessels are not congested. The cardiac size is stable. IMPRESSION: Interval development of a linear streak from the right hilum to the lateral pleural surface. Atelecta sis versus small amount of fluid in minor fissure. Follow-up recommended. POS: HOME
[2018-09-25] MEDS: Sodium Chloride 0.45% 1,000 ML IV SCH (19:34)
[2018-09-25] MEDS: cefTRIAXone\\ROCEPHIN 1 GM in Sodium Chloride 0.9% 100 ML IVPB SCH (20:46)
[2018-09-25] MEDS: Atorvastatin Calcium 10 MG TAB PO SCH (20:47)
[2018-09-25] MEDS ORDERED: cefTRIAXone\\ROCEPHIN 1 GM VIAL IM SCH (21:00)
[2018-09-26 05:24] LABS: #Lymphocytes 0.5 thou/uL (1.20-3.40); #Monocytes 0.1 thou/uL (0.11-0.59); #Neutrophils 8.1 thou/uL (1.40-6.50); %Basophils 0.1 % (0.0-1.0); %Lymphocytes 5.2 % (21.0-51.0); %Monocytes 0.7 % (0.0-10.0); Hemoglobin 12.3 g/dL (12.0-16.0); Mean Corpuscular HGB CONC 32.3 g/dL (32.0-36.0); Mean Corpuscular Hemoglobin 27.5 pg (27.0-31.0); Mean Corpuscular Volume 85.2 fL (78.0-98.0); Mean Platelet Volume 6.6 fL (7.4-10.4); Platelet Count 197 thou/uL (130-400); RBC Distribution Width 13.3 % (11.5-14.5); Red Blood Cell (RBC) Count 4.45 mill/uL (4.20-5.40); White Blood Cell (WBC) Count 8.6 thou/uL (4.8-10.8)
[2018-09-26 05:39] LABS: Anion Gap 13 mmol/L (10-20); BUN (Urea Nitrogen) 16 mg/dL (9.8-20.1); Calc. Creatinine Clearance 74 mL/min (70-130); Carbon Dioxide 27 mmol/L (23-31); Chloride 98 mmol/L (98-107); Estimated GFR-MDRD 66; Glucose 177 mg/dL (83-110); Potassium 5.2 mmol/L (3.5-5.1); Sodium 133 mmol/L (136-145)
[2018-09-26] MEDS ORDERED: Enoxaparin Sodium 30 MG/0.3 ML SYRINGE SC SCH (07:30)
[2018-09-26] MEDS: Escitalopram Oxalate 20 mg Tablet PO SCH (09:09)
[2018-09-26] MEDS: Lisinopril 20 MG TAB PO SCH (09:10)
[2018-09-26] MEDS: Aspirin 81 mg Enteric Coated Tablet PO SCH (09:10)
[2018-09-26] MEDS: Nicotine 21 MG PATCH TD SCH (09:11)
[2018-09-26] MEDS: cefTRIAXone\\ROCEPHIN 1 GM in Sodium Chloride 0.9% 100 ML IVPB SCH ×2 (09:13→20:39)
[2018-09-26] MEDS: Docusate 100 MG CAP PO PRN (09:31)
--- NOTE | 2018-09-26 10:56 | HP ---
PRIMARY CARE PHYSICIAN: Dr. Cage. CHIEF COMPLAINT: Worsening shortness of breath. HISTORY OF PRESENT ILLNESS: Ms. Andrews is a 73-year-old white female with end- stage COPD, dependent on oxygen with intermittent steroid burst, hypertension, hyperlipidemia, and continues tobacco use, presented to ED for worsening shortness of breath and hypotension. She has been having semi-productive cough, chest tightness/congestion and wheezing for the past two and half weeks. She had subjective fever for the past 2 days, she has decreased appetite, bilateral rib cage pain and recent history of falls. Symptoms are not improved with her nebulizations and continues use of oxygen. She was seen twice at ED for COPD exacerbation over the past 2 weeks, she was given Keflex and second visit, she was given Levaquin p.o. She has been weak and had falls recently, she went to her doctor this morning, however, noticed that she was having respiratory distress and hypotension, hence advised ER evaluation. At the ED, blood pressure was 108/57, pulse of 70, RR of 25. Lung findings reported presence of rales and diminished breath sounds. Her labs showed white count of 10.9, neutrophils of 75, lymphocytes of 17, basophils of 1.1. Lactic acid was 2.3. Sodium 132, potassium 4.7, chloride of 92, BUN of 20, creatinine of 1.26, GFR of 42, glucose of 110. BNP of 68.7, troponin of 0.34, CK-MB of 4.9. Her chest x-ray showed linear streaking extending from right hilum towards pleural surface, representing atelectasis or small amount of fluid in the minor fissure. The patient was given oxov-sp-cwmd nebulization with DuoNeb and albuterol, she was also given IV fluid repletion, Solu-Medrol, and Rocephin 2 g. EKG showed normal sinus rhythm. Due to failed outpatient treatment for COPD exacerbation and possible pneumonia, the patient is being admitted for evidence based treatment for COPD. Upon arrival at medical floor, the patient became slightly agitated and complaining of worsening chest congestion, she was medicated with a small dose of Xanax, her breathing improved after receiving another dose of nebulization. Upon my visit, the patient appears slightly better, she is still complaining of bilateral rib cage pain, chest congestion, and poor appetite. She denies any chest pain. Vital signs were all stable. PAST MEDICAL HISTORY: 1. End-stage COPD. 2. Hypertension. 3. Gastroesophageal reflux disease. 4. Hyperlipidemia. 5. Tobacco use. 6. Depression. 7. Colonic polyps. PAST SURGICAL HISTORY: 1. Left arm surgery. 2. Cholecystectomy. 3. Bilateral tubal ligation. FAMILY HISTORY: Father due to diabetes and complication of coronary artery disease. Mother with diabetes and coronary artery disease. Sister with diabetes and coronary artery disease. Sister diagnosed with breast cancer in the 60s. SOCIAL HISTORY: The patient is , she smokes 1 to 1-1/2 packs of cigarettes per day for the past 60 years, she denies alcohol or illicit drug use. She lives with her son and his . She uses a walker for ambulation. ALLERGIES: PENICILLIN. CURRENT MEDICATIONS: 1. Aspirin 81 mg daily. 2. Lipitor 20 mg daily. 3. Lexapro 10 mg daily. 4. Lisinopril 20 mg daily. 5. Nexium 40 mg daily. 6. DuoNeb q.6 hours p.r.n. for cough and wheezing. 7. Anoro Ellipta one inhalation daily. CODE STATUS: Full code. REVIEW OF SYSTEMS: GENERAL: Positive for subjective fever, fatigue, decreased appetite. HEENT: Positive for vision changes. Denies nasal congestion or ear pain. Negative for sore throat. CARDIOVASCULAR: Positive for chest tightness. Positive for bilateral rib cage pain. Negative for cyanosis. Negative for edema. RESPIRATORY: Positive for wheezing, chest tightness and congestion, positive for semi-productive cough, chronic with acute exacerbation. GASTROINTESTINAL: Negative for diarrhea, vomiting, constipation. GENITOURINARY: Negative for dysuria, frequent urination, or hematuria. NEUROLOGIC: Denies slurred speech, seizures. MUSCULOSKELETAL: Positive for falls, weakness in both upper and lower extremities, chronic in nature. PSYCH: Positive for mild depression. No homicidal or suicidal ideation. HEMATOLOGIC: Denies bleeding or bruising. PHYSICAL EXAMINATION: VITAL SIGNS: Blood pressure 110/54, temperature of 98, pulse of 90, RR of 24, O2 saturation 97% at 3 L of oxygen. GENERAL: The patient is obese, in mild respiratory distress, able to speak in complete sentences with nasal cannula in place. HEENT: Normocephalic, atraumatic. Pupils equal, reactive to light. NECK: Supple. Negative for lymphadenopathy. Negative for JVD. HEART: Regular rate and rhythm. Negative for murmur, rubs, or gallops. CHEST: Positive for use of accessory muscles. Positive for bilateral tenderness on lower rib cage. LUNGS: Diminished breath sounds on both lung selby with rhonchi and wheezing. ABDOMEN: Obese, normoactive bowel sounds, nontender, negative for CVA tenderness. EXTREMITIES: No cyanosis. Negative for edema. NEUROLOGIC: Cranial nerves 2 through 12 intact. PSYCH: Appropriate affect and demeanor. LABORATORY DATA: Reviewed. ASSESSMENT: 1. Acute on chronic respiratory failure. 2. Acute on chronic exacerbation of end-stage chronic obstructive pulmonary disease, uses oxygen 70% most of the time. 3. Chronic diastolic heart failure with EF of 55% to 60%. 4. Chronic hyponatremia. 5. Hypertension, improved. 6. Left-sided pleural effusion. 7. Hyperlipidemia. 8. Recent falls due to physical deconditioning secondary to #1. 9. Tobacco abuse. 10. Major depression. 11. Full code. PLAN: 1. Admitted for acute care for evidence based treatment of COPD exacerbation. 2. Prognosis is fair due to multiple comorbid condition. 3. Continue IV antibiotics for treatment of acute on chronic obstructive pulmonary disease exacerbation. 4. Continue home medication. 5. DVT prophylaxis with Lovenox. 6. Adjust IV antibiotics based on renal function. 7. Anticipated length of stay 3 to 5 days depending on patient's improvement. Discontinue to home with or without home health. optical laboratory manager to assist with discharge planning. Job ID: [id number] MTDD
[2018-09-26] MEDS: Sodium Chloride 0.45% 1,000 ML IV SCH (12:26)
[2018-09-26] MEDS: ALPRAZolam 0.5 MG TAB PO PRN ×2 (12:36→20:40)
[2018-09-26] MEDS ORDERED: Bacteriostatic Water 30 ML VIAL FS PRN (19:14)
[2018-09-26] MEDS: Atorvastatin Calcium 10 MG TAB PO SCH (20:39)
[2018-09-26] MEDS: methylPREDNISolone Sod Succ/PF 125 MG/2 ML VIAL IVP SCH (22:52)
[2018-09-27] MEDS: Sodium Chloride 0.45% 1,000 ML IV SCH (02:22)
[2018-09-27] MEDS: cefTRIAXone\\ROCEPHIN 1 GM in Sodium Chloride 0.9% 100 ML IVPB SCH ×2 (07:57→21:14)
[2018-09-27] MEDS: methylPREDNISolone Sod Succ/PF 125 MG/2 ML VIAL IVP SCH ×2 (07:58→21:02)
--- NOTE | 2018-09-27 08:51 | PRG ---
DATE OF SERVICE: 09/26/2018 PRIMARY CARE PHYSICIAN: Alyssa Cage DO SUBJECTIVE: The patient is still complaining of shortness of breath, chest congestion, tightness, still has decreased appetite, and weakness, she is still requiring scheduled nebulization. OBJECTIVE: VITAL SIGNS: Blood pressure of 120/50, temperature of 97.9, pulse of 90, RR of 20, O2 saturation 96% on room air. GENERAL: The patient is alert, oriented, in mild respiratory distress, able to speak complete sentences with an oxygen support. HEENT: Normocephalic, atraumatic. Pupils equal, reactive to light. NECK: Supple. Negative for lymphadenopathy. CHEST: Positive for use of accessory muscles, slightly tachypneic. LUNGS: Diminished breath sounds, faint wheezing. No rhonchi. ABDOMEN: Obese, slightly distended, hypoactive bowel sounds. Negative for rebound or deep tenderness. EXTREMITIES: No cyanosis. Negative for edema. NEUROLOGIC: Cranial nerves 2 through 12 intact. PSYCH: Appropriate affect and demeanor. LABORATORY DATA: WBC of 8.6, hemoglobin of 12, hematocrit of 37, platelet count of 197. Base met; sodium of 133, potassium of 5.2, BUN of 16, creatinine of 0.85, glucose of 177, calcium of 9.0. ASSESSMENT: 1. Acute on chronic respiratory failure. 2. Acute on chronic exacerbation of end-stage chronic obstructive pulmonary disease, oxygen dependent, uses oxygen 70% most of the time. 3. Chronic diastolic heart failure with EF of 55-60%. 4. Chronic hyponatremia secondary to chronic lung disease. 5. Hypotension, improved. 6. Left-sided pleural effusion. 7. Hyperlipidemia. 8. Recent falls due to physical deconditioning secondary to acute on chronic respiratory failure. 9. Tobacco abuse. 10. Major depression. 11. Full code. PLAN: 1. Continue present treatment for COPD. 2. Decrease Solu-Medrol from 125 mg to 80 mg q.12 hours x3 doses. 3. Continue IV antibiotics, renally dosed. 4. Continue home medications. 5. Continue DVT prophylaxis with Lovenox. 6. Start physical therapy to address weakness, multiple falls prior to admission. 7. harvesting manager to assist with discharge planning, may require home health with physical therapy once discharged. Job ID: [id number]
[2018-09-27] MEDS: Aspirin 81 mg Enteric Coated Tablet PO SCH (09:06)
[2018-09-27] MEDS: Lisinopril 20 MG TAB PO SCH (09:07)
[2018-09-27] MEDS: Escitalopram Oxalate 20 mg Tablet PO SCH (09:07)
[2018-09-27] MEDS: Nicotine 21 MG PATCH TD SCH (09:08)
[2018-09-27] MEDS: Docusate 100 MG CAP PO PRN (09:13)
[2018-09-27] MEDS: Acetaminophen 325 MG TAB PO PRN (09:13)
[2018-09-27] MEDS: Polyethylene Glycol 3350 17 GM Packet PO PRN (12:28)
[2018-09-27] MEDS: Atorvastatin Calcium 10 MG TAB PO SCH (21:01)
[2018-09-27] MEDS: ALPRAZolam 0.5 MG TAB PO PRN (21:07)
[2018-09-28 04:54] LABS: #Basophils 0.1 thou/uL (0.0-0.2); #Lymphocytes 0.8 thou/uL (1.20-3.40); #Monocytes 0.1 thou/uL (0.11-0.59); #Neutrophils 11.7 thou/uL (1.40-6.50); %Basophils 0.5 % (0.0-1.0); %Lymphocytes 6.5 % (21.0-51.0); %Monocytes 1.1 % (0.0-10.0); %Neutrophils 91.9 % (42.0-75.0); Mean Corpuscular HGB CONC 32.8 g/dL (32.0-36.0); Mean Corpuscular Hemoglobin 27.9 pg (27.0-31.0); Mean Corpuscular Volume 84.8 fL (78.0-98.0); Mean Platelet Volume 6.2 fL (7.4-10.4); Platelet Count 204 thou/uL (130-400); RBC Distribution Width 13.5 % (11.5-14.5); Red Blood Cell (RBC) Count 4.31 mill/uL (4.20-5.40); White Blood Cell (WBC) Count 12.7 thou/uL (4.8-10.8)
[2018-09-28 05:04] LABS: Anion Gap 12 mmol/L (10-20); BUN (Urea Nitrogen) 14 mg/dL (9.8-20.1); Calc. Creatinine Clearance 88 mL/min (70-130); Calcium 9.2 mg/dL (7.8-10.44); Carbon Dioxide 30 mmol/L (23-31); Chloride 96 mmol/L (98-107); Estimated GFR-MDRD 79; Glucose 149 mg/dL (83-110); Potassium 5.1 mmol/L (3.5-5.1); Sodium 133 mmol/L (136-145)
[2018-09-28 06:19] VITALS: BP 149/65; TEMP 98.3
[2018-09-28] MEDS ORDERED: predniSONE 20 MG TAB PO SCH ×2 (08:00→17:00)
[2018-09-28] MEDS: Nicotine 21 MG PATCH TD SCH (08:05)
[2018-09-28] MEDS: cefTRIAXone\\ROCEPHIN 1 GM in Sodium Chloride 0.9% 100 ML IVPB SCH (08:06)
[2018-09-28] MEDS: Polyethylene Glycol 3350 17 GM Packet PO PRN (08:07)
[2018-09-28] MEDS: Aspirin 81 mg Enteric Coated Tablet PO SCH (08:07)
[2018-09-28] MEDS: Lisinopril 20 MG TAB PO SCH (08:07)
[2018-09-28] MEDS: Escitalopram Oxalate 20 mg Tablet PO SCH (08:08)
[2018-09-28] MEDS: Docusate 100 MG CAP PO PRN (08:29)
[2018-09-28] MEDS: Acetaminophen 325 MG TAB PO PRN (08:29)
--- NOTE | 2018-09-28 09:08 | PRG ---
DATE OF SERVICE: 09/27/2018 SUBJECTIVE: Slightly better, less shortness of breath, using incentive spirometry and was producing 1500 mL, quite dizzy, legs are still wobbly, still has no bowel movement since her admission. She was evaluated by physical therapy and walked about 47 feet. OBJECTIVE: VITAL SIGNS: Blood pressure of 157/66, temperature 98.4, pulse of 82, RR of 20, O2 saturation 96% on 2 L of oxygen. GENERAL: The patient is alert and oriented, in mild respiratory distress. HEENT: Normocephalic, atraumatic. Pupils equal and reactive to light. Negative for tonsillopharyngeal congestion. NECK: Supple. Negative for lymphadenopathy. CHEST AND LUNGS: Positive use of accessory muscles for respiration. Lungs, diminished breath sounds on upper lung selby, positive for faint wheezing on the right lower lung selby. No rhonchi. No rales. ABDOMEN: Obese, slightly distended, hypoactive bowel sounds. Negative for deep or rebound tenderness. Negative for CVA tenderness. EXTREMITIES: No cyanosis. Negative for edema. NEUROLOGIC: Cranial nerves 2 through 12 intact. PSYCH: Appropriate affect and demeanor. LABORATORY DATA: Labs reviewed, stable. ASSESSMENT: 1. Acute on chronic respiratory failure. 2. Acute on chronic exacerbation of end-stage chronic obstructive pulmonary disease, oxygen dependent, uses oxygen 70% most of the time. 3. Chronic diastolic heart failure with ejection fraction of 55-60%. 4. Chronic hyponatremia secondary to chronic lung disease. 5. Hypotension, improved. 6. Left-sided pleural effusion. 7. Hypertension. 8. Hyperlipidemia. 9. Recent falls due to physical deconditioning secondary to acute on chronic respiratory failure due to chronic obstructive pulmonary disease. 10. Tobacco abuse. 11. Major depression. 12. Full code. PLAN: 1. Continue present treatment for COPD. 2. Transition Solu-Medrol to prednisone 40 mg daily starting on 09/28. 3. Continue present IV antibiotics. 4. Continue DVT prophylaxis with Lovenox. 5. Resume physical therapy to address weakness and multiple falls prior to admission. 6. Discharge to home in 1 week, may require home health with physical therapy to address physical deconditioning, case management to assist with discharge planning. Job ID: [id number]
== END 2018-09-28 14:52 | disposition swing bed (61) | DRG 190 ==
LOC: BURERS 11:20 → BURMED 12:45
PROVIDERS: ADMIT Family Medicine; ATTEND Family Medicine
DX: J44.1 Chronic obstructive pulmonary disease with (acute) exacerbation (principal); J96.20 Acute and chronic respiratory failure, unspecified whether with hypoxia or hypercapnia; I50.32 Chronic diastolic (congestive) heart failure; E87.1 Hypo-osmolality and hyponatremia; I95.9 Hypotension, unspecified; E78.00 Pure hypercholesterolemia, unspecified; I11.0 Hypertensive heart disease with heart failure; E66.9 Obesity, unspecified; F32.9 Major depressive disorder, single episode, unspecified; K21.9 Gastro-esophageal reflux disease without esophagitis; F17.210 Nicotine dependence, cigarettes, uncomplicated; Z88.0 Allergy status to penicillin; Z99.81 Dependence on supplemental oxygen; Z90.49 Acquired absence of other specified parts of digestive tract; Z98.51 Tubal ligation status; Z79.82 Long term (current) use of aspirin; Z79.899 Other long term (current) drug therapy; Z86.010 Personal history of colon polyps; Z68.29 Body mass index [BMI] 29.0-29.9, adult
CPT/HCPCS: 36415; 71045; 80048; 80053; 82553; 83605; 83880; 84484; 85025; 87040; 87804; 94640; 96365; 96368; 96375; J0696; J1650; J1885; J1956; J2920; J2930; J3490; J7620

== ENCOUNTER 2018-09-28 15:00 | Inpatient (IN) | payer MEDICARE ==
[2018-09-28] MEDS ORDERED: Prevnar 13-Val Conj/PF 0.5 ML SYRINGE IM ONE (17:30)
[2018-09-28] MEDS: ALPRAZolam 0.5 MG TAB PO PRN (17:54)
[2018-09-28] MEDS: Atorvastatin Calcium 10 MG TAB PO SCH (20:54)
[2018-09-28] MEDS: Acetaminophen 325 MG TAB PO PRN (20:57)
[2018-09-28] MEDS ORDERED: cefTRIAXone\\ROCEPHIN 1 GM VIAL IVPB SCH (21:00)
[2018-09-28] MEDS: cefTRIAXone\\ROCEPHIN 1 GM in Sodium Chloride 0.9% 100 ML IVPB SCH (21:00)
[2018-09-29] MEDS: Aspirin 81 mg Enteric Coated Tablet PO SCH (09:14)
[2018-09-29] MEDS: Docusate 100 MG CAP PO PRN (09:15)
[2018-09-29] MEDS: Lisinopril 20 MG TAB PO SCH (09:15)
[2018-09-29] MEDS: Escitalopram Oxalate 20 mg Tablet PO SCH (09:15)
[2018-09-29] MEDS: Polyethylene Glycol 3350 17 GM Packet PO PRN (09:16)
[2018-09-29] MEDS: Nicotine 21 MG PATCH TD SCH (09:18)
[2018-09-29] MEDS: cefTRIAXone\\ROCEPHIN 1 GM in Sodium Chloride 0.9% 100 ML IVPB SCH (09:19)
[2018-09-29] MEDS: ALPRAZolam 0.5 MG TAB PO PRN ×2 (09:29→22:25)
[2018-09-29] MEDS: Nystatin 500,000 UNITS/5 ML UDCUP SSW SCH ×3 (13:11→22:26)
[2018-09-29] MEDS: Acetaminophen 325 MG TAB PO PRN ×2 (13:27→22:25)
[2018-09-29] MEDS: predniSONE 20 MG TAB PO SCH (17:16)
[2018-09-29] MEDS: Cefdinir 300 MG CAP PO SCH (22:25)
[2018-09-29] MEDS: Atorvastatin Calcium 10 MG TAB PO SCH (22:25)
[2018-09-30] MEDS: Polyethylene Glycol 3350 17 GM Packet PO PRN (08:44)
[2018-09-30] MEDS: Nicotine 21 MG PATCH TD SCH (08:44)
[2018-09-30] MEDS: Docusate 100 MG CAP PO PRN (08:44)
[2018-09-30] MEDS: Escitalopram Oxalate 20 mg Tablet PO SCH (08:44)
[2018-09-30] MEDS: Acetaminophen 325 MG TAB PO PRN ×2 (08:45→21:11)
[2018-09-30] MEDS: Cefdinir 300 MG CAP PO SCH ×2 (08:45→21:11)
[2018-09-30] MEDS: Aspirin 81 mg Enteric Coated Tablet PO SCH (08:45)
[2018-09-30] MEDS: Lisinopril 20 MG TAB PO SCH (08:46)
[2018-09-30] MEDS: Enoxaparin Sodium 40 MG/0.4 ML SYRINGE SC SCH (08:46)
[2018-09-30] MEDS: Nystatin 500,000 UNITS/5 ML UDCUP SSW SCH ×4 (08:46→21:11)
[2018-09-30] MEDS: ALPRAZolam 0.5 MG TAB PO PRN ×2 (08:46→21:11)
[2018-09-30] MEDS: predniSONE 20 MG TAB PO SCH (17:00)
[2018-09-30] MEDS: Atorvastatin Calcium 10 MG TAB PO SCH (21:11)
[2018-10-01] MEDS: Acetaminophen 325 MG TAB PO PRN ×2 (08:19→20:31)
[2018-10-01] MEDS: Cefdinir 300 MG CAP PO SCH (08:20)
[2018-10-01] MEDS: Escitalopram Oxalate 20 mg Tablet PO SCH (08:20)
[2018-10-01] MEDS: Docusate 100 MG CAP PO PRN (08:20)
[2018-10-01] MEDS: Lisinopril 20 MG TAB PO SCH (08:20)
[2018-10-01] MEDS: Aspirin 81 mg Enteric Coated Tablet PO SCH (08:21)
[2018-10-01] MEDS: Polyethylene Glycol 3350 17 GM Packet PO PRN (08:21)
[2018-10-01] MEDS: Nystatin 500,000 UNITS/5 ML UDCUP SSW SCH ×4 (08:21→20:31)
[2018-10-01] MEDS: Enoxaparin Sodium 40 MG/0.4 ML SYRINGE SC SCH (08:21)
[2018-10-01] MEDS: ALPRAZolam 0.5 MG TAB PO PRN (08:21)
[2018-10-01] MEDS: Nicotine 21 MG PATCH TD SCH (08:21)
[2018-10-01 09:39] LABS: Hemoglobin 12.3 g/dL (12.0-16.0); Platelet Count 235 thou/uL (130-400)
[2018-10-01] MEDS ORDERED: hydrALAZINE 25 MG TAB PO PRN (14:32)
[2018-10-01] MEDS: predniSONE 20 MG TAB PO SCH (16:55)
[2018-10-01] MEDS: hydrOXYzine 25 MG TAB PO PRN (17:14)
[2018-10-01 20:21] VITALS: BMI 29.8
[2018-10-01] MEDS: Atorvastatin Calcium 10 MG TAB PO SCH (20:30)
[2018-10-02] MEDS: Aspirin 81 mg Enteric Coated Tablet PO SCH (09:39)
[2018-10-02] MEDS: Acetaminophen 325 MG TAB PO PRN ×2 (09:39→16:43)
[2018-10-02] MEDS: Lisinopril 20 MG TAB PO SCH (09:40)
[2018-10-02] MEDS: Nystatin 500,000 UNITS/5 ML UDCUP SSW SCH ×4 (09:42→20:27)
[2018-10-02] MEDS: Escitalopram Oxalate 20 mg Tablet PO SCH (09:42)
[2018-10-02] MEDS: hydrOXYzine 25 MG TAB PO PRN ×2 (09:43→16:43)
[2018-10-02] MEDS: Polyethylene Glycol 3350 17 GM Packet PO PRN (09:43)
[2018-10-02] MEDS: Nicotine 21 MG PATCH TD SCH (09:43)
[2018-10-02] MEDS: Enoxaparin Sodium 40 MG/0.4 ML SYRINGE SC SCH (09:43)
[2018-10-02] MEDS: Docusate 100 MG CAP PO PRN (09:43)
[2018-10-02] MEDS ORDERED: Bisacodyl 10 MG SUPP PR PRN (11:33)
[2018-10-02] MEDS ORDERED: Fleet Enema 133 ML BOT PR PRN (11:34)
[2018-10-02] MEDS: Milk Of Magnesia 30 ML UDCUP PO PRN (12:10)
[2018-10-02] MEDS: predniSONE 20 MG TAB PO SCH (16:43)
[2018-10-02] MEDS: ALPRAZolam 0.5 MG TAB PO PRN (20:27)
[2018-10-02] MEDS: Atorvastatin Calcium 10 MG TAB PO SCH (20:27)
[2018-10-03] MEDS: Acetaminophen 325 MG TAB PO PRN ×3 (01:10→20:36)
[2018-10-03 05:57] LABS: Hemoglobin 11.9 g/dL (12.0-16.0); Platelet Count 212 thou/uL (130-400)
[2018-10-03] MEDS: Lisinopril 20 MG TAB PO SCH (08:45)
[2018-10-03] MEDS: Nystatin 500,000 UNITS/5 ML UDCUP SSW SCH ×4 (08:45→20:33)
[2018-10-03] MEDS: Enoxaparin Sodium 40 MG/0.4 ML SYRINGE SC SCH (08:45)
[2018-10-03] MEDS: Nicotine 21 MG PATCH TD SCH (08:45)
[2018-10-03] MEDS: Escitalopram Oxalate 20 mg Tablet PO SCH (08:46)
[2018-10-03] MEDS: Aspirin 81 mg Enteric Coated Tablet PO SCH (08:46)
[2018-10-03] MEDS: Milk Of Magnesia 30 ML UDCUP PO PRN (13:01)
[2018-10-03] MEDS: predniSONE 20 MG TAB PO SCH (17:23)
[2018-10-03] MEDS: ALPRAZolam 0.5 MG TAB PO PRN (20:33)
[2018-10-03] MEDS: Atorvastatin Calcium 10 MG TAB PO SCH (20:33)
[2018-10-04] MEDS: Escitalopram Oxalate 20 mg Tablet PO SCH (09:03)
[2018-10-04] MEDS: Nicotine 21 MG PATCH TD SCH (09:03)
[2018-10-04] MEDS: Aspirin 81 mg Enteric Coated Tablet PO SCH (09:03)
[2018-10-04] MEDS: Enoxaparin Sodium 40 MG/0.4 ML SYRINGE SC SCH (09:03)
[2018-10-04] MEDS: Nystatin 500,000 UNITS/5 ML UDCUP SSW SCH ×4 (09:03→20:25)
[2018-10-04] MEDS: Lisinopril 20 MG TAB PO SCH (09:05)
[2018-10-04] MEDS: predniSONE 20 MG TAB PO SCH (17:15)
[2018-10-04] MEDS: ALPRAZolam 0.5 MG TAB PO PRN (20:24)
[2018-10-04] MEDS: Atorvastatin Calcium 10 MG TAB PO SCH (20:25)
[2018-10-05 05:37] LABS: Hemoglobin 12.1 g/dL (12.0-16.0); Platelet Count 224 thou/uL (130-400)
[2018-10-05 06:12] VITALS: TEMP 98.3
[2018-10-05] MEDS: Nicotine 21 MG PATCH TD SCH (08:50)
[2018-10-05] MEDS: Enoxaparin Sodium 40 MG/0.4 ML SYRINGE SC SCH (08:50)
[2018-10-05] MEDS: Escitalopram Oxalate 20 mg Tablet PO SCH (08:51)
[2018-10-05] MEDS: Lisinopril 20 MG TAB PO SCH (08:51)
[2018-10-05] MEDS: Nystatin 500,000 UNITS/5 ML UDCUP SSW SCH (08:51)
[2018-10-05] MEDS: Aspirin 81 mg Enteric Coated Tablet PO SCH (08:51)
[2018-10-05 08:52] VITALS: BP 142/65
--- NOTE | 2018-10-07 12:09 | DIS ---
DATE OF ADMISSION: 09/28/2018 DATE OF DISCHARGE: 10/05/2018 ADMISSION DIAGNOSES: Chronic obstructive pulmonary disease exacerbation, chronic diastolic heart failure, hypertension, dyslipidemia, depression, and physical deconditioning. PROCEDURES: On 09/25/2018, chest x-ray showed interval development of a linear streak from the right hilum to the lateral pleural surface, atelectasis versus small amount of fluid and minor fissure. HOSPITAL COURSE: This is a 73-year-old female with advanced COPD for which she is oxygen dependent admitted to [facility] Emergency Department with complaints of worsening upper respiratory symptoms including frequent cough and dyspnea. She has been treated within the last couple of weeks with outpatient therapy including oral antibiotics, nebulized treatments, and her usual controlling medications for COPD, however, failed to improve. Due to this, the patient was admitted for COPD exacerbation. Subsequently, treated with IV Solu-Medrol, IV antibiotics, supplemental oxygen, and her usual respiratory medications. The patient's respiratory status gradually returned back to her baseline. During her stay, she was transitioned from an acute inpatient to a swing bed patient, so she did participate with physical therapy and occupational therapy secondary to her physical deconditioning and history of recent falls. Her functional status improved accordingly to the point, where she is able to discharge back to her home setting. Of note, the patient did develop a rash during her stay, which was thought to be secondary to Levaquin. Thus, it would be advised to avoid this medication in the future. As of this morning, the patient feels to be at her baseline respiratory status with improved strength and mobility and is amenable to discharge to her home setting. She does request to have a handicap placard secondary to her mobility limitations. DISPOSITION: The patient will be discharged home where she lives with her son and his . She reports to have home health. Nursing is to contact her home health provider to inform of her impending discharge. The patient may follow up with her primary care provider, Dr. Cage in approximately 1 week. DISCHARGE MEDICATIONS: 1. One new medication will be prednisone 20 mg two tabs x3 days followed by one tab x3 days. 2. She will resume her usual home medications otherwise which include;. a. Aspirin 81 mg daily. b. Lipitor 20 mg daily. c. Lexapro 10 mg daily. d. Lisinopril 20 mg daily. e. Nexium 40 mg daily. f. DuoNeb q.6 hours p.r.n. g. Anoro Ellipta one inhalation daily. Job ID: [id number] MTDD
== END 2018-10-05 11:15 | disposition home or self-care (01) | DRG 190 ==
LOC: BURMED 15:00
PROVIDERS: ADMIT Family Medicine; ATTEND Family Medicine
DX: J44.1 Chronic obstructive pulmonary disease with (acute) exacerbation (principal); J96.20 Acute and chronic respiratory failure, unspecified whether with hypoxia or hypercapnia; I50.32 Chronic diastolic (congestive) heart failure; E87.1 Hypo-osmolality and hyponatremia; J90 Pleural effusion, not elsewhere classified; I11.0 Hypertensive heart disease with heart failure; E78.5 Hyperlipidemia, unspecified; F32.9 Major depressive disorder, single episode, unspecified; R26.89 Other abnormalities of gait and mobility; Z99.81 Dependence on supplemental oxygen; Z90.49 Acquired absence of other specified parts of digestive tract; Z98.51 Tubal ligation status; Z79.82 Long term (current) use of aspirin; Z79.899 Other long term (current) drug therapy; F17.200 Nicotine dependence, unspecified, uncomplicated
CPT/HCPCS: 36415; 82565; 85014; 85018; 85049; 94640; J0696; J1650; J3490; J7512; J7620

== ENCOUNTER 2018-10-29 09:49 | Inpatient (IN) | payer MEDICARE ==
[2018-10-29] MEDS ORDERED: Albuterol Sulfate 2.5 mg/0.5 ml Neb ONE (10:14)
[2018-10-29] MEDS ORDERED: Sodium Chloride For Inhalation 0.9% 3 ML NEB ONE ×2 (10:14→10:17)
[2018-10-29] MEDS ORDERED: methylPREDNISolone Sod Succ/PF 125 MG/2 ML VIAL ONE (10:14)
[2018-10-29 10:27] LABS: #Basophils 0.1 thou/uL (0.0-0.2); #Eosinphils 0.1 thou/uL (0.0-0.7); #Lymphocytes 1.1 thou/uL (1.20-3.40); #Monocytes 0.6 thou/uL (0.11-0.59); #Neutrophils 4.5 thou/uL (1.40-6.50); %Basophils 1.3 % (0.0-1.0); %Eosinophils 2.1 % (0.0-10.0); %Lymphocytes 16.7 % (21.0-51.0); %Monocytes 9.3 % (0.0-10.0); %Neutrophils 70.7 % (42.0-75.0); Hemoglobin 11.2 g/dL (12.0-16.0); Mean Corpuscular HGB CONC 32.1 g/dL (32.0-36.0); Mean Corpuscular Hemoglobin 27.8 pg (27.0-31.0); Mean Corpuscular Volume 86.5 fL (78.0-98.0); Mean Platelet Volume 6.4 fL (7.4-10.4); Platelet Count 239 thou/uL (130-400); RBC Distribution Width 13.3 % (11.5-14.5); Red Blood Cell (RBC) Count 4.04 mill/uL (4.20-5.40); White Blood Cell (WBC) Count 6.3 thou/uL (4.8-10.8)
[2018-10-29 10:39] LABS: ALT (SGPT) 16 U/L (8-55); AST (SGOT) 16 U/L (5-34); Albumin 3.8 g/dL (3.4-4.8); Alkaline Phosphatase 71 U/L (40-150); Anion Gap 13 mmol/L (10-20); BUN (Urea Nitrogen) 12 mg/dL (9.8-20.1); Bilirubin, Total 0.3 mg/dL (0.2-1.2); Calc. Creatinine Clearance 0 mL/min (70-130); Calcium 9.2 mg/dL (7.8-10.44); Carbon Dioxide 28 mmol/L (23-31); Chloride 95 mmol/L (98-107); Estimated GFR-MDRD 75; Globulin 2.6 g/dL (2.4-3.5); Glucose 108 mg/dL (83-110); Potassium 5.2 mmol/L (3.5-5.1); Protein, Total 6.4 g/dL (6.0-8.3); Sodium 131 mmol/L (136-145)
[2018-10-29] MEDS ORDERED: Lidocaine Viscous Sol 2% 15 ml UD Cup ONE (11:25)
[2018-10-29] MEDS ORDERED: Mag-Al Plus 1200 MG/1200 MG/120 MG/30 ML UDCUP ONE (11:25)
[2018-10-29 13:00] VITALS: BMI 26.8
[2018-10-29] MEDS ORDERED: Acetaminophen 325 MG TAB PO PRN ×2 (15:13→17:06)
[2018-10-29] MEDS ORDERED: Ondansetron ODT 4 MG TAB SL PRN (15:13)
[2018-10-29] MEDS ORDERED: Ondansetron PF 4 MG/2 ML Vial IVP PRN (15:13)
[2018-10-29] MEDS ORDERED: Albuterol Sulfate 2.5 mg/3 ml Neb NEB PRN ×2 (15:15→18:09)
--- NOTE | 2018-10-29 17:08 | RAD ---
PORTABLE CHEST: Date: 10-29-18 Comparison: 09-25-18 FINDINGS: The heart is stable in size. There is no vascular congestion, edema, or pleural effusion. No acute in filtrates are appreciated. The linear infiltrate extending from the right hilum previously has resolv ed though it was probably just atelectasis. A little bit of lingular scarring is suggested. IMPRESSION: No adverse change since last month's chest radiograph. POS: HOME
[2018-10-29] MEDS: Nicotine 21 MG PATCH TD SCH (18:02)
[2018-10-29] MEDS: ALPRAZolam 0.5 MG TAB PO PRN (18:03)
[2018-10-29] MEDS: Doxycycline 100 MG CAP PO SCH (20:03)
[2018-10-29] MEDS: Atorvastatin Calcium 10 MG TAB PO SCH (20:03)
[2018-10-30 04:52] LABS: #Basophils 0.1 thou/uL (0.0-0.2); #Lymphocytes 1.3 thou/uL (1.20-3.40); #Monocytes 0.5 thou/uL (0.11-0.59); #Neutrophils 5.6 thou/uL (1.40-6.50); %Basophils 0.9 % (0.0-1.0); %Eosinophils 0.4 % (0.0-10.0); %Lymphocytes 16.8 % (21.0-51.0); %Monocytes 7.1 % (0.0-10.0); %Neutrophils 74.8 % (42.0-75.0); Hemoglobin 11.1 g/dL (12.0-16.0); Mean Corpuscular HGB CONC 32.8 g/dL (32.0-36.0); Mean Corpuscular Hemoglobin 28.1 pg (27.0-31.0); Mean Corpuscular Volume 85.5 fL (78.0-98.0); Mean Platelet Volume 6.6 fL (7.4-10.4); Platelet Count 239 thou/uL (130-400); RBC Distribution Width 13.1 % (11.5-14.5); Red Blood Cell (RBC) Count 3.96 mill/uL (4.20-5.40); White Blood Cell (WBC) Count 7.4 thou/uL (4.8-10.8)
[2018-10-30 05:17] LABS: Anion Gap 12 mmol/L (10-20); BUN (Urea Nitrogen) 12 mg/dL (9.8-20.1); Calc. Creatinine Clearance 83 mL/min (70-130); Calcium 9.4 mg/dL (7.8-10.44); Carbon Dioxide 28 mmol/L (23-31); Chloride 96 mmol/L (98-107); Estimated GFR-MDRD 82; Glucose 109 mg/dL (83-110); Potassium 4.8 mmol/L (3.5-5.1); Sodium 131 mmol/L (136-145)
[2018-10-30] MEDS: Doxycycline 100 MG CAP PO SCH ×2 (08:52→20:08)
[2018-10-30] MEDS: Escitalopram Oxalate 20 mg Tablet PO SCH (08:52)
[2018-10-30] MEDS: Lisinopril 20 MG TAB PO SCH (08:53)
[2018-10-30] MEDS: Aspirin 81 mg Enteric Coated Tablet PO SCH (08:57)
[2018-10-30] MEDS: methylPREDNISolone Sod Succ/PF 125 MG/2 ML VIAL IVP SCH (08:59)
[2018-10-30] MEDS ORDERED: Non-Formulary Item 1 EACH (Umeclidinium Brm/Vilanterol Tr [Anoro Ellipta] 1 INH) IH SCH (09:00)
[2018-10-30] MEDS ORDERED: Nicotine 21 MG PATCH TD SCH (09:00)
[2018-10-30] MEDS: Acetaminophen 325 MG TAB PO PRN (10:59)
[2018-10-30] MEDS: ALPRAZolam 0.5 MG TAB PO PRN (14:16)
[2018-10-30] MEDS: Nicotine 21 MG PATCH TD SCH (18:09)
[2018-10-30] MEDS: Atorvastatin Calcium 10 MG TAB PO SCH (20:08)
[2018-10-30] MEDS: guaiFENesin ER 600 MG TAB PO SCH (20:08)
--- NOTE | 2018-10-30 20:25 | HP ---
CHIEF COMPLAINT: Dyspnea on exertion. HISTORY OF PRESENT ILLNESS: Ms. Andrews is a 73-year-old female with a past medical history of COPD that is O2 dependent and recent hospitalizations for hyponatremia and COPD exacerbation, who presented to the emergency room with complaint of persistent dyspnea on exertion and weakness to the point that she could no longer take care of herself at home. 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 She feels like she really just has not improved any since her last swing bed admission. She denies nausea, vomiting, but has had a decreased oral intake for the past 3 days prior to admission, so bad that she was unable to eat or drink or even get out of bed without being severely short of breath. She felt similar when she was admitted previously back in July with low sodium. The patient during that admission had a sodium down to 118 at the lowest and was secondary to the syndrome of inappropriate ADH per workup performed. During that hospitalization, she had a cardiac stress test that was normal, as she had presented with some chest pain that was deemed noncardiac in nature. Her ejection fraction was normal, no scar or ischemia, normal wall motion and no reversible defect noted. Her sodium improved, but the patient reports that she did have some weakness following the hospitalization and was admitted again pneumonia and was back here at [place] at the end of September, staying approximately 4 days as an acute patient and then another week in swing bed, discharging on October 05. The patient reports compliance with her medications. PAST MEDICAL HISTORY: 1. COPD. 2. Dyslipidemia. 3. Depression. 4. Cataracts. 5. Esophageal reflux. 6. Colon polyps. 7. Tobacco abuse. 8. Deconditioning. 9. Diastolic CHF. 10. Hypertension. 11. Hyperlipidemia. 12. Normocytic anemia. PAST SURGICAL HISTORY: 1. Left arm surgery. 2. Cholecystectomy. 3. BTL. SOCIAL HISTORY: The patient is and smokes approximately a pack to pack and half of cigarettes per day for approximately 60 years, but has been able to transition to nicotine patch while she was recently in the skilled unit. Denies alcohol or illicit drug use. She lives with her son and [id number]-tin, who work military source operations specialist. She uses a walker for ambulation. FAMILY HISTORY: Her father is due to diabetes and complications of coronary artery disease. Her mother is with diabetes and coronary artery disease. She has a sister with diabetes and coronary artery disease. She has a sister who was diagnosed with breast cancer in the 60s. ALLERGIES: CODEINE AND PENICILLIN AND A RECENT RASH FOLLOWING [facility] DURING THE LAST ASSISTED STAY. PENICILLIN SHE STATES CAUSED A RASH AND SOME SLIGHT SWELLING OF HER TONGUE A LATE TEENAGER. MEDICATIONS: 1. Anoro Ellipta one inhalation daily. 2. Xanax 0.5 mg p.o. b.i.d. p.r.n. anxiety. 3. Tylenol regular strength 650 mg p.o. q.6 hours p.r.n. pain. 4. Lexapro 10 mg p.o. daily. 5. Colace 100 mg p.o. b.i.d. p.r.n. 6. Lipitor 20 mg p.o. q.h.s. 7. Aspirin 81 mg p.o. daily. 8. Protonix 40 mg p.o. daily. 9. Nicoderm CQ of 21 mg transdermal daily. 10. Zestril 20 mg p.o. daily. 11. MiraLAX 17 g p.o. daily p.r.n. 12. DuoNeb q.6 hours p.r.n. when unable to use Anoro. REVIEW OF SYSTEMS: GENERAL: The patient denies fever, malaise. Admits to fatigue due to shortness of breath. No chills. HEENT: Denies vision changes, double vision, sore throat, rhinorrhea, or ear pain. CARDIOVASCULAR: Denies chest pain, palpitations, orthopnea, or PND. RESPIRATORY: Uses continuous O2 at 2 L/minute at home. Denies hemoptysis. Occasional wheezing. Has had a change in color of her sputum, but is scant in amount. GASTROINTESTINAL: Denies nausea, vomiting, diarrhea, constipation, melena, hematochezia, or abdominal pain. GENITOURINARY: Denies dysuria, incontinence, or gross hematuria. LYMPHATIC: Denies edema or any swollen nodes. DERMATOLOGIC: Denies rash that is new. She still does have some evidence of the previous rash to her lower extremities from her prior admission is not quite faded. NEUROLOGIC: Denies numbness, tingling, focal weakness, slurring of the speech, or memory loss. PHYSICAL EXAMINATION: VITAL SIGNS: In the ER, blood pressure 116/67, pulse 81, O2 saturation 96% on 2 L, respirations 22, temperature 98.2, pain 8/10 secondary to respiratory distress. At my exam, pulse 88, temperature 98.3, respirations 22, O2 saturation 98% on 2 L. GENERAL: Well-developed female, who is slightly disheveled. Speaking in complete sentences. In no acute distress. Nasal cannula in place. HEENT: Normocephalic, atraumatic. Pupils are equally round and reactive to light and accommodation. Extraocular muscles intact. Nares are patent without discharge. Tongue protrudes in the midline. The patient is without teeth or dentures. NECK: Supple without lymphadenopathy, thyromegaly, JVD, or bruit. HEART: Regular rate and rhythm with distant sounds. No murmurs, clicks, rubs, or gallops. LUNGS: Diminished air entry throughout with both inspiratory and expiratory wheezing throughout with a prolonged expiratory phase. ABDOMEN: Positive bowel sounds in all 4 quadrants. Soft, nontender, nondistended. No masses, guarding, or rebound tenderness. EXTREMITIES: No cyanosis, clubbing, or edema. NEUROLOGIC: Cranial nerves 2 through 12 grossly intact without focal deficits. LABORATORY DATA: White count 6.3, hemoglobin 11.2, hematocrit 34.9, platelets 239 with 70% neutrophils and 16% lymphocytes. Sodium 131, potassium 5.2, chloride 95, bicarb 28, BUN 12, creatinine 0.76. LFTs normal. CK-MB 7, troponin I 0.032. B-type natriuretic peptide 65.3. Repeat troponin 0.026. IMAGING: Chest x-ray shows no adverse change since last month. Chest radiograph with no vascular congestion, edema, or pleural effusion. No acute infiltrates. Resolving linear infiltrate extending from the right hilum previously or resolved lingular scarring. ASSESSMENT AND PLAN: 1. Acute exacerbation of chronic obstructive pulmonary disease with hypoxia. The patient will be admitted to the floor and started on IV steroids. Due to a change in the color of her sputum, we will add doxycycline. We will give neb treatments and O2. At discharge, we will set the patient up for PFTs and pulmonary rehab to try to prevent rehospitalization. 2. Generalized deconditioning. We will get a physical therapy consultation during the hospitalization and likely transition the patient [facility] and even further placement from there if needed. 3. Chronic hyponatremia. This has been previously worked up as a syndrome of inappropriate antidiuretic hormone. We will monitor her sodium closely. 4. Indeterminate troponin and elevated CK-MB. The patient with a stable EKG and a prior recent cardiac stress/workup that was negative. Her troponin is actually at her baseline. Subsequent retesting shows it to be normalized. The patient is without chest pain. We will continue aspirin. 5. Tobacco abuse. We will place her on a Nicoderm patch. 6. Chronic diastolic congestive heart failure. The patient will be continued on her CARLA inhibitor. No beta-jackie secondary to possible bronchospasm and wheezing. We will monitor fluid status. 7. Hypertension. The patient's blood pressure will be monitored closely. 8. Hyperlipidemia. The patient's statin will be continued. 9. Depression. The patient's Lexapro will be continued. 10. Prophylaxis. The patient's PPI will be continued and she will be placed on SCDs. 11. Code status. The patient desires to be a do not attempt resuscitation status. Job ID: [id number] MTDD
[2018-10-31] MEDS: Acetaminophen 325 MG TAB PO PRN ×2 (00:48→15:56)
[2018-10-31] MEDS: guaiFENesin ER 600 MG TAB PO SCH ×2 (08:24→20:20)
[2018-10-31] MEDS: Doxycycline 100 MG CAP PO SCH ×2 (08:24→20:19)
[2018-10-31] MEDS: Lisinopril 20 MG TAB PO SCH (08:25)
[2018-10-31] MEDS: Escitalopram Oxalate 20 mg Tablet PO SCH (08:25)
[2018-10-31] MEDS: Aspirin 81 mg Enteric Coated Tablet PO SCH (08:25)
[2018-10-31] MEDS: methylPREDNISolone Sod Succ/PF 125 MG/2 ML VIAL IVP SCH (08:26)
[2018-10-31] MEDS: Polyethylene Glycol 3350 17 GM Packet PO PRN (08:34)
[2018-10-31] MEDS: Docusate 100 MG CAP PO PRN (15:57)
[2018-10-31] MEDS: ALPRAZolam 0.5 MG TAB PO PRN (15:57)
[2018-10-31] MEDS: Nicotine 21 MG PATCH TD SCH (17:28)
[2018-10-31] MEDS ORDERED: Milk Of Magnesia 30 ML UDCUP PO PRN (17:43)
[2018-10-31] MEDS: Nicotine 14 MG PATCH TD SCH (18:23)
[2018-10-31] MEDS: Atorvastatin Calcium 10 MG TAB PO SCH (20:19)
[2018-10-31] MEDS: Promethazine 25 MG TAB PO PRN (20:20)
[2018-11-01 05:39] LABS: Anion Gap 15 mmol/L (10-20); BUN (Urea Nitrogen) 16 mg/dL (9.8-20.1); Calc. Creatinine Clearance 83 mL/min (70-130); Calcium 9.6 mg/dL (7.8-10.44); Carbon Dioxide 29 mmol/L (23-31); Chloride 94 mmol/L (98-107); Estimated GFR-MDRD 82; Glucose 93 mg/dL (83-110); Potassium 5.2 mmol/L (3.5-5.1); Sodium 133 mmol/L (136-145)
[2018-11-01] MEDS: Promethazine 25 MG TAB PO PRN (08:29)
[2018-11-01] MEDS: Polyethylene Glycol 3350 17 GM Packet PO PRN (08:56)
[2018-11-01] MEDS: predniSONE 20 MG TAB PO SCH (08:57)
[2018-11-01] MEDS: Aspirin 81 mg Enteric Coated Tablet PO SCH (08:58)
[2018-11-01] MEDS: guaiFENesin ER 600 MG TAB PO SCH ×2 (08:59→20:19)
[2018-11-01] MEDS: Lisinopril 20 MG TAB PO SCH (09:01)
[2018-11-01] MEDS: Doxycycline 100 MG CAP PO SCH ×2 (09:02→20:19)
[2018-11-01] MEDS: Nicotine 14 MG PATCH TD SCH (17:26)
[2018-11-01] MEDS: Docusate 100 MG CAP PO PRN (17:28)
[2018-11-01] MEDS: Atorvastatin Calcium 10 MG TAB PO SCH (20:20)
[2018-11-01] MEDS: Acetaminophen 325 MG TAB PO PRN (22:32)
[2018-11-02] MEDS: ALPRAZolam 0.5 MG TAB PO PRN ×2 (01:15→20:42)
[2018-11-02] MEDS: guaiFENesin ER 600 MG TAB PO SCH ×2 (09:13→20:38)
[2018-11-02] MEDS: Polyethylene Glycol 3350 17 GM Packet PO PRN (09:13)
[2018-11-02] MEDS: Doxycycline 100 MG CAP PO SCH ×2 (09:13→20:39)
[2018-11-02] MEDS: predniSONE 20 MG TAB PO SCH (09:14)
[2018-11-02] MEDS: Docusate 100 MG CAP PO PRN (09:14)
[2018-11-02] MEDS: Lisinopril 20 MG TAB PO SCH (09:15)
[2018-11-02] MEDS: Aspirin 81 mg Enteric Coated Tablet PO SCH (09:15)
[2018-11-02] MEDS ORDERED: Bisacodyl 10 MG SUPP PR PRN (10:57)
[2018-11-02] MEDS: Nicotine 14 MG PATCH TD SCH (18:37)
[2018-11-02] MEDS: Atorvastatin Calcium 10 MG TAB PO SCH (20:39)
[2018-11-03] MEDS: predniSONE 20 MG TAB PO SCH (09:03)
[2018-11-03] MEDS: Polyethylene Glycol 3350 17 GM Packet PO PRN (09:03)
[2018-11-03] MEDS: Lisinopril 20 MG TAB PO SCH (09:04)
[2018-11-03] MEDS: guaiFENesin ER 600 MG TAB PO SCH ×2 (09:04→20:03)
[2018-11-03] MEDS: Doxycycline 100 MG CAP PO SCH ×2 (09:05→20:03)
[2018-11-03] MEDS: Aspirin 81 mg Enteric Coated Tablet PO SCH (09:05)
[2018-11-03] MEDS: Docusate 100 MG CAP PO PRN (09:05)
--- NOTE | 2018-11-03 18:00 | PRG ---
DATE OF SERVICE: 11/03/2018 PRIMARY CARE PHYSICIAN: Dr. Cage. SUBJECTIVE: The patient is breathing a little better, she still feels weak. She has been getting up more but get short of breath, she denies any fever, appetite is at baseline. She is requesting to restart her Anoro inhaler. OBJECTIVE: VITAL SIGNS: Blood pressure 149/63, pulse of 88, RR of 20, and O2 saturation 97% on 2 L. GENERAL: The patient is alert and oriented, not in respiratory distress. HEENT: Normocephalic and atraumatic. Pupils are equal and reactive to light. NECK: Supple. Negative for lymphadenopathy. CHEST AND LUNGS: Positive for use of accessory muscles for respiration, decreased breath sounds on the left upper and lower lung selby. Positive for faint wheezing on right upper and lower lung selby. ABDOMEN: Obese, slightly distended, normoactive bowel sounds. Negative for CVA tenderness. EXTREMITIES: No cyanosis. No edema. NEUROLOGIC: Cranial nerves II through XII intact. PSYCHIATRIC: Appropriate affect and demeanor. LABORATORY DATA: Reviewed. ASSESSMENT: 1. Ercfr-bj-groyucx respiratory failure. 2. Jerth-qs-pgzyker exacerbation of end-stage chronic obstructive pulmonary disease. 3. Chronic diastolic heart failure with EF of 55% to 60%. 4. Hypertension. 5. Hyperlipidemia. 6. Tobacco abuse. 7. Major depression. 8. Full code. PLAN: 1. Continue present treatment for chronic obstructive pulmonary disease. 2. Restart Anoro Ellipta, one inhalation nightly. 3. Continue present oral antibiotics. 4. Discharge to home, possibly early next week. Job ID: [id number] MTDD
[2018-11-03] MEDS: Nicotine 14 MG PATCH TD SCH (18:22)
[2018-11-03] MEDS: ALPRAZolam 0.5 MG TAB PO PRN (20:04)
[2018-11-03] MEDS: Atorvastatin Calcium 10 MG TAB PO SCH (20:04)
[2018-11-03] MEDS: ANORO INH SCH (20:11)
[2018-11-03] MEDS: VILANTEROL INH SCH (20:11)
[2018-11-04] MEDS: Acetaminophen 325 MG TAB PO PRN ×2 (00:37→13:04)
[2018-11-04] MEDS: Doxycycline 100 MG CAP PO SCH ×2 (08:42→20:16)
[2018-11-04] MEDS: Polyethylene Glycol 3350 17 GM Packet PO PRN (08:42)
[2018-11-04] MEDS: Docusate 100 MG CAP PO PRN (08:43)
[2018-11-04] MEDS: predniSONE 20 MG TAB PO SCH (08:43)
[2018-11-04] MEDS: Lisinopril 20 MG TAB PO SCH (08:43)
[2018-11-04] MEDS: guaiFENesin ER 600 MG TAB PO SCH ×2 (08:44→20:15)
[2018-11-04] MEDS: Aspirin 81 mg Enteric Coated Tablet PO SCH (08:44)
--- NOTE | 2018-11-04 16:45 | PRG ---
DATE OF SERVICE: 11/04/2018 PRIMARY CARE PHYSICIAN: Dr. Cage. SUBJECTIVE: The patient complained of headaches this morning, relieved with Tylenol. Her weakness is improved, breathing is at baseline, she restarted her Anoro last night. OBJECTIVE: VITAL SIGNS: Blood pressure of 115/53, temperature of 98.1, pulse of 71, RR of 18, O2 saturation 96% on room air. GENERAL: The patient is alert, oriented, not in respiratory distress. HEENT: Normocephalic, atraumatic. Pupils are equal, reactive to light. NECK: Supple. Negative for lymphadenopathy. CHEST AND LUNGS: Positive use of accessory muscles, decreased breath sounds on left upper and lower lung selby. Positive for faint wheezing on the right upper lung selby. ABDOMEN: Obese, slightly distended. Normoactive bowel sounds. Negative for CVA tenderness. EXTREMITIES: No cyanosis. No edema. NEUROLOGIC: Cranial nerves 2 through 12 intact. PSYCH: Appropriate affect and demeanor. LABORATORY DATA: Labs reviewed. ASSESSMENT: 1. Jpgyl-wq-gmtvlga respiratory failure. 2. Btypk-ur-yxvvjma exacerbation of end-stage chronic obstructive pulmonary disease. 3. Chronic diastolic heart failure with EF of 55% to 60%. 4. Hypertension. 5. Hyperlipidemia. 6. Tobacco abuse. 7. Major depression. 8. Full code. PLAN: 1. Continue present treatment for COPD. Continue present oral antibiotics. 2. Discharge to home on Monday as requested by the patient. 3. Transfer of care to Dr. Cage in a.m. Job ID: [id number]
[2018-11-04] MEDS: Nicotine 14 MG PATCH TD SCH (18:11)
[2018-11-04] MEDS: Atorvastatin Calcium 10 MG TAB PO SCH (20:15)
[2018-11-04] MEDS: ANORO INH SCH (20:16)
[2018-11-04] MEDS: VILANTEROL INH SCH (20:16)
[2018-11-04] MEDS: ALPRAZolam 0.5 MG TAB PO PRN (20:18)
[2018-11-05] MEDS: Acetaminophen 325 MG TAB PO PRN ×2 (02:20→09:50)
[2018-11-05] MEDS: Lisinopril 20 MG TAB PO SCH (08:14)
[2018-11-05] MEDS: Docusate 100 MG CAP PO PRN (08:14)
[2018-11-05] MEDS: guaiFENesin ER 600 MG TAB PO SCH ×2 (08:15→20:15)
[2018-11-05] MEDS: predniSONE 20 MG TAB PO SCH (08:15)
[2018-11-05] MEDS: Doxycycline 100 MG CAP PO SCH (08:16)
[2018-11-05] MEDS: Polyethylene Glycol 3350 17 GM Packet PO PRN (08:16)
[2018-11-05] MEDS: Aspirin 81 mg Enteric Coated Tablet PO SCH (08:16)
[2018-11-05] MEDS: ALPRAZolam 0.5 MG TAB PO PRN ×2 (09:51→20:15)
[2018-11-05] MEDS: Nicotine 14 MG PATCH TD SCH (17:38)
[2018-11-05] MEDS: Atorvastatin Calcium 10 MG TAB PO SCH (20:15)
[2018-11-05] MEDS: VILANTEROL INH SCH (20:16)
[2018-11-05] MEDS: ANORO INH SCH (20:16)
[2018-11-06] MEDS: Acetaminophen 325 MG TAB PO PRN (01:05)
[2018-11-06 06:21] VITALS: TEMP 97.8
[2018-11-06] MEDS ORDERED: predniSONE 20 MG TAB PO SCH (08:00)
[2018-11-06] MEDS: Polyethylene Glycol 3350 17 GM Packet PO PRN (08:41)
[2018-11-06] MEDS: guaiFENesin ER 600 MG TAB PO SCH (08:41)
[2018-11-06] MEDS: Docusate 100 MG CAP PO PRN (08:41)
[2018-11-06] MEDS: ALPRAZolam 0.5 MG TAB PO PRN (08:42)
[2018-11-06] MEDS: Aspirin 81 mg Enteric Coated Tablet PO SCH (08:42)
[2018-11-06] MEDS: Lisinopril 20 MG TAB PO SCH (08:42)
[2018-11-06 08:46] VITALS: BP 115/53
--- NOTE | 2018-11-08 06:39 | PQF ---
[employer] Reports Jen Murphy KRISTEL DO [id number] CLINICAL DOCUMENTATION CLARIFICATION FORM: POST DISCHARGE Addendum to original discharge summary date: ____ Late entry note date: __ DATE: 11/08/2018 ATTN: Jen Andrews Please exercise your independent, professional judgment in responding to the clarification form. Clinical indicators are provided on the bottom of this form for your review Diagnosis: Acute on chronic Respiratory failure Present on Admission (POA): [x ] Yes [ ] No [ ] Unable to determine Coding guidelines require hospitals to identify whether a diagnosis was present on admission (POA) or not. To accurately assign the appropriate POA indicator, this information must be clearly documented within the medical record. CLINICAL INDICATORS - SIGNS / SYMPTOMS / LABS Acute on chronic Respiratory failure - Documented in PNs on 11/03 by Vonda Linn MD Positive use of acessory muscle for respiration - Documented in PNs on 11/03 by Vonda Linn MDaces Hypoxia - Documented in H&P on 10/29 by WALKER OLSEN DO O2 sat 94 on 10/29 - Documented in Vital Signs RISK FACTORS: COPD exacerbation - Documented in H&P on 10/29 by WALKER OLSEN DO Chronic CHF - Documented in H&P on 10/29 by WALKER OLSEN DO TREATMENT: will give neb treatment and O2 - Documented in H&P on 10/29 by WALKER OLSEN DO restart Anoro Ellipta one inhalation nightly - Documented in PNs on 11/03 by Vonda Linn MD O2 delivery Nasal Cannula (This form is maintained as a part of the permanent medical record) 2014 [employer]. All Rights Reserved [email or web address] [email or web address] [not provided] MTDD
== END 2018-11-06 14:50 | disposition home or self-care (01) | DRG 189 ==
LOC: BURERS 09:49 → BURMED 12:15
PROVIDERS: ADMIT Family Medicine; ATTEND Family Medicine
DX: J96.21 Acute and chronic respiratory failure with hypoxia (principal); J44.1 Chronic obstructive pulmonary disease with (acute) exacerbation; E87.1 Hypo-osmolality and hyponatremia; I50.32 Chronic diastolic (congestive) heart failure; E78.5 Hyperlipidemia, unspecified; F32.9 Major depressive disorder, single episode, unspecified; K21.9 Gastro-esophageal reflux disease without esophagitis; F17.210 Nicotine dependence, cigarettes, uncomplicated; R53.81 Other malaise; I11.0 Hypertensive heart disease with heart failure; Z99.81 Dependence on supplemental oxygen; Z90.49 Acquired absence of other specified parts of digestive tract; Z98.51 Tubal ligation status; Z88.5 Allergy status to narcotic agent; Z88.0 Allergy status to penicillin; Z79.82 Long term (current) use of aspirin; D64.9 Anemia, unspecified; L27.0 Generalized skin eruption due to drugs and medicaments taken internally; T36.8X5A Adverse effect of other systemic antibiotics, initial encounter; K59.00 Constipation, unspecified; F41.9 Anxiety disorder, unspecified
CPT/HCPCS: 36415; 71045; 80048; 80053; 82553; 83880; 84484; 85025; 93005; 96374; J2930; J7512; J7611; J7620; Q0169

== ENCOUNTER 2018-11-10 11:59 | Emergency (ER) | payer MEDICARE ==
[2018-11-10 12:50] LABS: #Basophils 0.1 thou/uL (0.0-0.2); #Lymphocytes 1.1 thou/uL (1.20-3.40); #Monocytes 0.3 thou/uL (0.11-0.59); #Neutrophils 12.5 thou/uL (1.40-6.50); %Basophils 0.6 % (0.0-1.0); %Lymphocytes 7.6 % (21.0-51.0); %Monocytes 2.2 % (0.0-10.0); %Neutrophils 89.6 % (42.0-75.0); Mean Corpuscular HGB CONC 32.6 g/dL (32.0-36.0); Mean Corpuscular Volume 86.1 fL (78.0-98.0); Platelet Count 281 thou/uL (130-400); RBC Distribution Width 13.1 % (11.5-14.5); Red Blood Cell (RBC) Count 4.27 mill/uL (4.20-5.40)
[2018-11-10 13:04] LABS: ALT (SGPT) 23 U/L (8-55); AST (SGOT) 20 U/L (5-34); Albumin 4.1 g/dL (3.4-4.8); Alkaline Phosphatase 62 U/L (40-110); Anion Gap 17 mmol/L (10-20); BUN (Urea Nitrogen) 11 mg/dL (9.8-20.1); Bilirubin, Total 0.4 mg/dL (0.2-1.2); Calc. Creatinine Clearance 0 mL/min (70-130); Calcium 9.3 mg/dL (7.8-10.44); Carbon Dioxide 26 mmol/L (23-31); Chloride 95 mmol/L (98-107); Estimated GFR-MDRD 71; Globulin 2.9 g/dL (2.4-3.5); Glucose 140 mg/dL (83-110); Potassium 4.7 mmol/L (3.5-5.1); Sodium 133 mmol/L (136-145)
[2018-11-10 13:12] LABS: Bilirubin Negative (Negative); Blood, Urine Negative (Negative); Clarity Cloudy (Clear); Glucose, Urine (Dipstick) Negative (Negative); Leukocyte Negative (Negative); Nitrite Negative (Negative); Protein, Urine (Dipstick) Negative (Neg-Trace); Urobilinogen 0.2 mg/dL (Less than 2)
== END 2018-11-10 14:08 | disposition home or self-care (01) ==
LOC: BURERS 11:59
DX: R19.7 Diarrhea, unspecified (principal); I10 Essential (primary) hypertension; J44.9 Chronic obstructive pulmonary disease, unspecified; E78.00 Pure hypercholesterolemia, unspecified; K21.9 Gastro-esophageal reflux disease without esophagitis; F32.9 Major depressive disorder, single episode, unspecified; F17.210 Nicotine dependence, cigarettes, uncomplicated; Z79.899 Other long term (current) drug therapy; Z79.82 Long term (current) use of aspirin; Z79.51 Long term (current) use of inhaled steroids
CPT/HCPCS: 80053; 81003; 85025; 96360

== ENCOUNTER 2019-01-01 07:42 | Inpatient (IN) | payer MEDICARE ==
[2019-01-01] MEDS ORDERED: methylPREDNISolone Sod Succ/PF 125 MG/2 ML VIAL ONE (08:01)
[2019-01-01 08:21] LABS: #Basophils 0.1 thou/uL (0.0-0.2); #Eosinphils 0.1 thou/uL (0.0-0.7); #Lymphocytes 1.4 thou/uL (1.20-3.40); #Neutrophils 14.9 thou/uL (1.40-6.50); %Basophils 0.5 % (0.0-1.0); %Eosinophils 0.7 % (0.0-10.0); %Lymphocytes 8.2 % (21.0-51.0); %Monocytes 5.7 % (0.0-10.0); %Neutrophils 84.9 % (42.0-75.0); Hemoglobin 11.7 g/dL (12.0-16.0); Mean Corpuscular Hemoglobin 28.1 pg (27.0-31.0); Mean Corpuscular Volume 85.1 fL (78.0-98.0); Mean Platelet Volume 6.2 fL (7.4-10.4); Platelet Count 259 thou/uL (130-400); RBC Distribution Width 12.7 % (11.5-14.5); Red Blood Cell (RBC) Count 4.15 mill/uL (4.20-5.40); White Blood Cell (WBC) Count 17.5 thou/uL (4.8-10.8)
[2019-01-01 08:36] LABS: ALT (SGPT) 20 U/L (8-55); AST (SGOT) 19 U/L (5-34); Albumin 3.8 g/dL (3.4-4.8); Alkaline Phosphatase 64 U/L (40-110); Anion Gap 16 mmol/L (10-20); BUN (Urea Nitrogen) 15 mg/dL (9.8-20.1); Bilirubin, Total 0.4 mg/dL (0.2-1.2); Calc. Creatinine Clearance 0 mL/min (70-130); Calcium 9.1 mg/dL (7.8-10.44); Carbon Dioxide 27 mmol/L (23-31); Chloride 94 mmol/L (98-107); Estimated GFR-MDRD 76; Globulin 2.8 g/dL (2.4-3.5); Glucose 117 mg/dL (83-110); Potassium 4.9 mmol/L (3.5-5.1); Protein, Total 6.6 g/dL (6.0-8.3); Sodium 132 mmol/L (136-145)
[2019-01-01] MEDS ORDERED: Ketorolac Tromethamine 30 MG/ML VIAL ONE (08:56)
[2019-01-01] MEDS ORDERED: Azithromycin 500 MG VIAL ONE (09:36)
[2019-01-01] MEDS ORDERED: cefTRIAXone\\ROCEPHIN 1 GM VIAL ONE (09:36)
[2019-01-01] MEDS ORDERED: Acetaminophen 325 MG TAB PO PRN (11:03)
[2019-01-01] MEDS ORDERED: Ondansetron PF 4 MG/2 ML Vial IVP PRN (11:03)
[2019-01-01] MEDS ORDERED: Ondansetron ODT 4 MG TAB SL PRN (11:03)
[2019-01-01] MEDS ORDERED: Albuterol Sulfate 2.5 mg/3 ml Neb NEB PRN ×2 (11:05→18:08)
[2019-01-01 11:42] VITALS: BMI 27.3
--- NOTE | 2019-01-01 15:33 | RAD ---
AP PORTABLE CHEST: 01/01/2019 0802 HOURS COMPARISON: 10/29/2018 I also reviewed a 07/29/2018 film and a 07/22/2018 CT. FINDINGS: The heart is normal in size and the lungs are clear. No lobar infiltrate or effusion is seen today. T he left hilum is slightly prominent, compared to the right. It does not appear substantially differen t than the prior two films, including a film that had a CT scan done in proximity to that time. Thus it is presumed to be all due to a prominent pulmonary artery. The patient is probably turned slightly as well, which will accentuate the appearance. IMPRESSION: No acute thoracic finding. POS: HOME
[2019-01-01] MEDS: methylPREDNISolone Sod Succ/PF 125 MG/2 ML VIAL IVP SCH ×2 (15:39→21:32)
[2019-01-01] MEDS ORDERED: Non-Formulary Item 1 EACH (Fluticasone/Umeclidin/Vilanter [Trelegy Ellipta 100-62.5-25] 1 IH SCH (18:15)
[2019-01-01] MEDS: Mometasone/Formoterol 60 PUFF AER INH SCH (19:58)
[2019-01-01] MEDS: ALPRAZolam 0.5 MG TAB PO PRN (21:31)
[2019-01-01] MEDS: Famotidine 20 MG TAB PO SCH (21:31)
[2019-01-01] MEDS: Atorvastatin Calcium 10 MG TAB PO SCH (21:31)
[2019-01-02 05:23] LABS: #Lymphocytes 0.7 thou/uL (1.20-3.40); #Monocytes 0.1 thou/uL (0.11-0.59); #Neutrophils 7.5 thou/uL (1.40-6.50); %Basophils 0.2 % (0.0-1.0); %Lymphocytes 8.5 % (21.0-51.0); %Neutrophils 90.3 % (42.0-75.0); Hemoglobin 11.1 g/dL (12.0-16.0); Mean Corpuscular HGB CONC 32.9 g/dL (32.0-36.0); Mean Corpuscular Hemoglobin 28.2 pg (27.0-31.0); Mean Corpuscular Volume 85.5 fL (78.0-98.0); Mean Platelet Volume 6.6 fL (7.4-10.4); Platelet Count 261 thou/uL (130-400); Red Blood Cell (RBC) Count 3.94 mill/uL (4.20-5.40); White Blood Cell (WBC) Count 8.3 thou/uL (4.8-10.8)
[2019-01-02] MEDS: Mometasone/Formoterol 60 PUFF AER INH SCH ×3 (05:48→18:37)
[2019-01-02 06:09] LABS: Anion Gap 15 mmol/L (10-20); BUN (Urea Nitrogen) 16 mg/dL (9.8-20.1); Calc. Creatinine Clearance 88 mL/min (70-130); Calcium 9.3 mg/dL (7.8-10.44); Carbon Dioxide 28 mmol/L (23-31); Chloride 97 mmol/L (98-107); Estimated GFR-MDRD 86; Glucose 168 mg/dL (83-110); Potassium 5.6 mmol/L (3.5-5.1); Sodium 134 mmol/L (136-145)
[2019-01-02] MEDS: methylPREDNISolone Sod Succ/PF 125 MG/2 ML VIAL IVP SCH ×3 (08:59→20:01)
[2019-01-02] MEDS ORDERED: Lisinopril 20 MG TAB PO SCH (09:00)
[2019-01-02] MEDS: Azithromycin 250 MG in Sodium Chloride 0.9% 250 ML 250 ML IVPB SCH (09:06)
[2019-01-02] MEDS: Aspirin 81 mg Enteric Coated Tablet PO SCH (09:17)
[2019-01-02] MEDS: Famotidine 20 MG TAB PO SCH ×2 (09:17→20:07)
[2019-01-02] MEDS: cefTRIAXone\\ROCEPHIN 1 GM in Sodium Chloride 0.9% 100 ML IVPB SCH (11:02)
[2019-01-02] MEDS: Polyethylene Glycol 3350 17 GM Packet PO PRN (11:15)
[2019-01-02] MEDS: Docusate 100 MG CAP PO PRN (11:18)
[2019-01-02] MEDS: Promethazine 25 MG TAB PO PRN (19:55)
[2019-01-02] MEDS: Enoxaparin Sodium 40 MG/0.4 ML SYRINGE SC SCH (20:06)
[2019-01-02] MEDS: Atorvastatin Calcium 10 MG TAB PO SCH (20:07)
[2019-01-03] MEDS: ALPRAZolam 0.5 MG TAB PO PRN ×2 (00:02→21:09)
[2019-01-03 05:49] LABS: Anion Gap 13 mmol/L (10-20); BUN (Urea Nitrogen) 17 mg/dL (9.8-20.1); Calc. Creatinine Clearance 91 mL/min (70-130); Calcium 9.3 mg/dL (7.8-10.44); Carbon Dioxide 30 mmol/L (23-31); Chloride 96 mmol/L (98-107); Estimated GFR-MDRD 89; Glucose 136 mg/dL (83-110); Potassium 4.8 mmol/L (3.5-5.1); Sodium 134 mmol/L (136-145)
[2019-01-03] MEDS: Acetaminophen 325 MG TAB PO PRN (06:01)
[2019-01-03] MEDS: Mometasone/Formoterol 60 PUFF AER INH SCH ×2 (06:02→19:31)
[2019-01-03] MEDS: methylPREDNISolone Sod Succ/PF 125 MG/2 ML VIAL IVP SCH ×2 (09:24→20:57)
[2019-01-03] MEDS: Aspirin 81 mg Enteric Coated Tablet PO SCH (09:29)
[2019-01-03] MEDS: Famotidine 20 MG TAB PO SCH ×2 (09:30→20:57)
[2019-01-03] MEDS: Azithromycin 250 MG in Sodium Chloride 0.9% 250 ML 250 ML IVPB SCH (09:30)
[2019-01-03] MEDS: cefTRIAXone\\ROCEPHIN 1 GM in Sodium Chloride 0.9% 100 ML IVPB SCH (11:41)
[2019-01-03] MEDS: Polyethylene Glycol 3350 17 GM Packet PO PRN (11:52)
[2019-01-03] MEDS: Docusate 100 MG CAP PO PRN (11:52)
--- NOTE | 2019-01-03 11:54 | RAD ---
ABDOMINAL SURVEY WITH UPRIGHT CHEST AND 2 VIEW ABDOMEN: Date: 01/03/19 INDICATION: Nausea with emesis. Comparison made to chest x-ray of 01/01/19. FINDINGS: Diffuse alveolar infiltrate is now seen in the right lower lobe. This has occurred since 01/01/19. Th ere may be a small associated effusion. Left lung remains clear. 2 views of the abdomen show prominent stool throughout the colon. The small bowel gas pattern is unre markable. Post cholecystectomy clips. No evidence of free intraperitoneal air. IMPRESSION: 1. New confluent infiltrate in the right lung base. 2. Prominent stool throughout the colon. Unremarkable bowel gas pattern. POS: OFF
[2019-01-03] MEDS: Atorvastatin Calcium 10 MG TAB PO SCH (20:57)
[2019-01-03] MEDS: Enoxaparin Sodium 40 MG/0.4 ML SYRINGE SC SCH (20:57)
[2019-01-03] MEDS: Milk Of Magnesia 30 ML UDCUP PO PRN (20:57)
[2019-01-04 05:22] LABS: ALT (SGPT) 14 U/L (8-55); AST (SGOT) 9 U/L (5-34); Albumin 3.4 g/dL (3.4-4.8); Alkaline Phosphatase 52 U/L (40-110); Anion Gap 14 mmol/L (10-20); BUN (Urea Nitrogen) 13 mg/dL (9.8-20.1); Bilirubin, Total 0.3 mg/dL (0.2-1.2); Calc. Creatinine Clearance 91 mL/min (70-130); Calcium 9.3 mg/dL (7.8-10.44); Carbon Dioxide 32 mmol/L (23-31); Chloride 93 mmol/L (98-107); Estimated GFR-MDRD 89; Globulin 2.6 g/dL (2.4-3.5); Glucose 144 mg/dL (83-110); Potassium 5.1 mmol/L (3.5-5.1); Sodium 134 mmol/L (136-145)
[2019-01-04 05:48] LABS: Band 4 % (5-11); Hemoglobin 10.9 g/dL (12.0-16.0); Lymphocytes 3 % (21-51); MDiff Complete? YES; Mean Corpuscular HGB CONC 33.2 g/dL (32.0-36.0); Mean Corpuscular Hemoglobin 28.3 pg (27.0-31.0); Mean Corpuscular Volume 85.4 fL (78.0-98.0); Mean Platelet Volume 6.2 fL (7.4-10.4); Monocytes 4 % (0-10); Neutrophil 89 % (42-75); Platelet Count 270 thou/uL (130-400); Platelet Morphology Comment Appears Adequate; RBC Morphology Normal; Red Blood Cell (RBC) Count 3.84 mill/uL (4.20-5.40); Toxic Granulation SLIGHT; White Blood Cell (WBC) Count 21.6 thou/uL (4.8-10.8)
[2019-01-04] MEDS: Mometasone/Formoterol 60 PUFF AER INH SCH ×2 (05:58→17:11)
[2019-01-04] MEDS: Aspirin 81 mg Enteric Coated Tablet PO SCH (08:48)
[2019-01-04] MEDS: Azithromycin 250 MG in Sodium Chloride 0.9% 250 ML 250 ML IVPB SCH (08:49)
[2019-01-04] MEDS: Famotidine 20 MG TAB PO SCH ×2 (08:49→21:51)
[2019-01-04] MEDS: methylPREDNISolone Sod Succ/PF 125 MG/2 ML VIAL IVP SCH (09:16)
[2019-01-04] MEDS: cefTRIAXone\\ROCEPHIN 1 GM in Sodium Chloride 0.9% 100 ML IVPB SCH (09:51)
[2019-01-04] MEDS: Milk Of Magnesia 30 ML UDCUP PO PRN (10:59)
[2019-01-04] MEDS ORDERED: Bisacodyl 10 MG SUPP PR PRN (11:14)
[2019-01-04] MEDS: predniSONE 20 MG TAB PO SCH (17:00)
[2019-01-04] MEDS: Polyethylene Glycol 3350 17 GM Packet PO PRN (19:27)
[2019-01-04] MEDS: Docusate 100 MG CAP PO PRN (19:27)
[2019-01-04] MEDS: ALPRAZolam 0.5 MG TAB PO PRN (21:50)
[2019-01-04] MEDS: Atorvastatin Calcium 10 MG TAB PO SCH (21:50)
[2019-01-04] MEDS: Enoxaparin Sodium 40 MG/0.4 ML SYRINGE SC SCH (21:50)
[2019-01-05] MEDS: Acetaminophen 325 MG TAB PO PRN ×2 (03:54→21:06)
[2019-01-05] MEDS: Mometasone/Formoterol 60 PUFF AER INH SCH ×2 (06:00→18:14)
[2019-01-05] MEDS: Azithromycin 250 MG in Sodium Chloride 0.9% 250 ML 250 ML IVPB SCH (09:28)
[2019-01-05] MEDS: predniSONE 20 MG TAB PO SCH (09:29)
[2019-01-05] MEDS: Famotidine 20 MG TAB PO SCH ×2 (09:31→20:57)
[2019-01-05] MEDS: Aspirin 81 mg Enteric Coated Tablet PO SCH (09:31)
[2019-01-05] MEDS: cefTRIAXone\\ROCEPHIN 1 GM in Sodium Chloride 0.9% 100 ML IVPB SCH (10:43)
[2019-01-05] MEDS: Docusate 100 MG CAP PO PRN ×2 (14:06→20:57)
[2019-01-05] MEDS: Milk Of Magnesia 30 ML UDCUP PO PRN (14:06)
[2019-01-05] MEDS: Polyethylene Glycol 3350 17 GM Packet PO PRN (14:06)
[2019-01-05] MEDS: Enoxaparin Sodium 40 MG/0.4 ML SYRINGE SC SCH (20:57)
[2019-01-05] MEDS: Atorvastatin Calcium 10 MG TAB PO SCH (20:57)
[2019-01-05] MEDS: ALPRAZolam 0.5 MG TAB PO PRN (21:06)
[2019-01-06 05:40] LABS: ALT (SGPT) 17 U/L (8-55); AST (SGOT) 9 U/L (5-34); Albumin 3.3 g/dL (3.4-4.8); Alkaline Phosphatase 52 U/L (40-110); Anion Gap 14 mmol/L (10-20); BUN (Urea Nitrogen) 14 mg/dL (9.8-20.1); Bilirubin, Total 0.3 mg/dL (0.2-1.2); Calc. Creatinine Clearance 95 mL/min (70-130); Calcium 8.8 mg/dL (7.8-10.44); Carbon Dioxide 31 mmol/L (23-31); Chloride 92 mmol/L (98-107); Estimated GFR-MDRD Greater than 90; Globulin 2.7 g/dL (2.4-3.5); Glucose 103 mg/dL (83-110); Potassium 4.6 mmol/L (3.5-5.1); Sodium 132 mmol/L (136-145)
[2019-01-06] MEDS: Mometasone/Formoterol 60 PUFF AER INH SCH ×2 (06:04→17:19)
[2019-01-06 06:11] LABS: Mean Corpuscular Volume 85.3 fL (78.0-98.0); Red Blood Cell (RBC) Count 3.88 mill/uL (4.20-5.40); White Blood Cell (WBC) Count 12.4 thou/uL (4.8-10.8)
[2019-01-06 06:12] LABS: Mean Corpuscular HGB CONC 33.2 g/dL (32.0-36.0); Mean Corpuscular Hemoglobin 28.4 pg (27.0-31.0); Platelet Count 291 thou/uL (130-400); RBC Distribution Width 12.7 % (11.5-14.5)
[2019-01-06 06:13] LABS: Manual Diff?? YES
[2019-01-06 06:25] LABS: Eosinophils 1 % (0-10); Lymphocytes 15 % (21-51); Monocytes 4 % (0-10)
[2019-01-06 06:27] LABS: Platelet Morphology Comment Appears Adequate; RBC Morphology Normal
[2019-01-06 06:35] LABS: MDiff Complete? YES
[2019-01-06 06:36] LABS: Neutrophil 80 % (42-75)
[2019-01-06] MEDS: Famotidine 20 MG TAB PO SCH ×2 (08:52→20:38)
[2019-01-06] MEDS: predniSONE 20 MG TAB PO SCH (08:53)
[2019-01-06] MEDS: Aspirin 81 mg Enteric Coated Tablet PO SCH (08:53)
[2019-01-06] MEDS ORDERED: Magnesium Citrate 300 ML BOT PO SCH (09:15)
[2019-01-06] MEDS: cefTRIAXone\\ROCEPHIN 1 GM in Sodium Chloride 0.9% 100 ML IVPB SCH (09:48)
--- NOTE | 2019-01-06 10:10 | RAD ---
CHEST 2 VIEWS: DATE: 01/06/2019. FINDINGS: Comparison is made with the 01/03 study. Right lower lobe infiltrate is still present but has improved slightly in the interval. Previously, the vasculature was more prominent and is less so now. Some pleural fluid is present on the right, b ut probably a little less than before. There may be a little lingular streaking. The heart size is normal. IMPRESSION: Overall improvement since 01/03 as described above. POS: HOME
[2019-01-06] MEDS: Promethazine 25 MG TAB PO PRN (11:35)
[2019-01-06] MEDS: Polyethylene Glycol 3350 17 GM Packet PO PRN (20:37)
[2019-01-06] MEDS: Docusate 100 MG CAP PO PRN (20:37)
[2019-01-06] MEDS: Milk Of Magnesia 30 ML UDCUP PO PRN (20:37)
[2019-01-06] MEDS: Enoxaparin Sodium 40 MG/0.4 ML SYRINGE SC SCH (20:38)
[2019-01-06] MEDS: Atorvastatin Calcium 10 MG TAB PO SCH (20:38)
[2019-01-06] MEDS: ALPRAZolam 0.5 MG TAB PO PRN (20:47)
[2019-01-07] MEDS: Mometasone/Formoterol 60 PUFF AER INH SCH ×2 (06:00→18:01)
[2019-01-07] MEDS: Aspirin 81 mg Enteric Coated Tablet PO SCH (08:52)
[2019-01-07] MEDS: predniSONE 20 MG TAB PO SCH (08:53)
[2019-01-07] MEDS: Famotidine 20 MG TAB PO SCH ×2 (08:53→21:07)
[2019-01-07] MEDS: cefTRIAXone\\ROCEPHIN 1 GM in Sodium Chloride 0.9% 100 ML IVPB SCH (10:19)
[2019-01-07] MEDS: Enoxaparin Sodium 40 MG/0.4 ML SYRINGE SC SCH (21:07)
[2019-01-07] MEDS: Atorvastatin Calcium 10 MG TAB PO SCH (21:07)
[2019-01-07] MEDS: ALPRAZolam 0.5 MG TAB PO PRN (21:16)
[2019-01-08 04:28] LABS: Calc. Creatinine Clearance 95 mL/min (70-130); Estimated GFR-MDRD Greater than 90
[2019-01-08 04:49] LABS: Hemoglobin 11.1 g/dL (12.0-16.0); Platelet Count 314 thou/uL (130-400)
[2019-01-08] MEDS: Acetaminophen 325 MG TAB PO PRN ×2 (05:57→13:34)
[2019-01-08] MEDS: Mometasone/Formoterol 60 PUFF AER INH SCH (06:05)
[2019-01-08 06:54] VITALS: BP 130/63; TEMP 98.8
[2019-01-08] MEDS: Aspirin 81 mg Enteric Coated Tablet PO SCH (09:13)
[2019-01-08] MEDS: Famotidine 20 MG TAB PO SCH (09:13)
[2019-01-08] MEDS: predniSONE 20 MG TAB PO SCH (09:13)
[2019-01-08] MEDS: cefTRIAXone\\ROCEPHIN 1 GM in Sodium Chloride 0.9% 100 ML IVPB SCH (09:14)
--- NOTE | 2019-01-08 12:45 | DIS ---
DATE OF ADMISSION: 01/01/2019 DATE OF DISCHARGE: 01/08/2019 ADMISSION DIAGNOSES: Chronic obstructive pulmonary disease exacerbation, community-acquired pneumonia of the right lower lobe, generalized weakness, and constipation. HOSPITAL COURSE: A 73-year-old female with oxygen-dependent chronic obstructive pulmonary disease, who presented to the [facility] Emergency Department with worsening upper respiratory symptoms and dyspnea, not relieved by her maintenance medications at home. Initial workup revealed leukocytosis with left shifts. The patient's initial chest x-ray was clear. However, subsequent imaging as of two days later did reveal an infiltrate of the right lower lobe. The patient received IV Rocephin and an oral course of azithromycin during her stay. She was provided IV steroid therapy and transitioned to p.o. steroid therapy. Her oxygen was supplemented throughout her stay. She was also treated for constipation during her stay, which improved with a combination of medications. Due to the patient's physical deconditioning, she was provided physical therapy and occupational therapy. Her ability to transfer and mobilize improved during her stay to the point, where she is now able to and discharge back to her home setting where she lives with her son and his . Her respiratory status has returned back to her baseline and she will be discharged with a further oral course of p.o. cephalexin and p.o. prednisone. She will resume her usual medications otherwise. DISPOSITION: The patient will discharge home where she lives with family members. She is being rearranged with interim home health to provide further physical therapy and occupational therapy, and transition of care in her home setting. She may follow up with her primary care provider, Dr. Cage in one week. DISCHARGE MEDICATIONS: She will resume all of her usual home medications. Two new medications include cephalexin 500 mg p.o. b.i.d. x5 days and prednisone 20 mg p.o. daily x5 days. Job ID: [id number]
[2019-01-08] MEDS: ALPRAZolam 0.5 MG TAB PO PRN (15:02)
[2019-01-08] MEDS ORDERED: Mometasone/Formoterol 60 PUFF AER INH SCH (18:00)
--- NOTE | 2019-01-09 13:59 | HP ---
CHIEF COMPLAINT: Shortness of breath and chest pain. HISTORY OF PRESENT ILLNESS: Ms. Anderws is a 73-year-old female with a past medical history of COPD, who presented to the emergency room with complaint of shortness of breath for 3 days, worse than her baseline. She has had multiple admissions this year for COPD exacerbations, most recently in November, for which she was not approved by her insuranc for group home for rehab and was discharged back to home. She reports that she has not felt well since that time, not back to her baseline. She has had poor p.o. intake. She does not feel like cooking or eating what is provided for her at home. Her daughter in law cooks meals for her and puts them in the freezer for her to warm up, but she just hasn't felt like doing that. She lives close to her son and DIL who work most of the time during the day. She has a past history of tobacco abuse, but quit smoking approximately 2 months ago. She denies that she has had any fever, but started having some rib pain today associated with a cough and was requiring oxygen above her usual O2 requirement of 2 L/min. In the emergency room, the patient was found to be tachypneic and in the ED had some hypotension with systolic into the 70s, which was improved with IV fluid bolus. She also received Rocephin and azithromycin in the emergency room as well as Toradol for the rib pain which resolved it and a DuoNeb. She had a normal chest x-ray, but had a leukocytosis with a left shift and requiring O2 above her home requirement, and will be admitted for acute exacerbation of COPD with hypoxia without hypercapnia. PAST MEDICAL HISTORY: 1. COPD, on home O2 2 L/min baseline. 2. Dyslipidemia. 3. Depression. 4. Cataracts. 5. Esophageal reflux. 6. Colon polyps. 7. Tobacco abuse. 8. Deconditioning. 9. Diastolic CHF. 10. Hypertension. 11. Hyperlipidemia. 12. Normocytic anemia. PAST SURGICAL HISTORY: 1. Left arm surgery. 2. Cholecystectomy. 3. BTL. SOCIAL HISTORY: The patient is and smoked approximately a pack to a pack and a half cigarettes per day for approximately 6 years, but recently quit a couple of months ago with a nicotine patch, but it made her nauseous, so she stopped it. She still feels like she has some withdrawals. She denies alcohol or illicit drug use. She lives with her son and [id number] who works multimedia production assistant. She uses a walker in the home for ambulation. FAMILY HISTORY: Her father is due to diabetes and complications of coronary artery disease. Her mother is with diabetes and coronary artery disease. She has a sister with diabetes and coronary artery disease. She has a sister who was diagnosed with breast cancer in her 60s. ALLERGIES: CODEINE, PENICILLIN, RECENT RASH FOLLOWING LEVAQUIN, ADMINISTERED DURING HER PREVIOUS STAY. MEDICATIONS: 1. Lisinopril 20 mg daily. 2. Atorvastatin 20 mg daily. 3. Aspirin 81 mg daily. 4. Lexapro 10 mg daily. 5. Albuterol nebulized q.4 hours p.r.n. 6. Anoro Ellipta 62.5/25 mcg inhaled once a day. 7. Nexium 40 mg daily. 8. Simethicone 125 mg p.o. daily p.r.n. REVIEW OF SYSTEMS: CONSTITUTIONAL: Complains of fatigue, weakness, weight loss of 5 kg since her last admission. No chills or fever. EYES: Denies eye pain or changes in her vision. ENT: Positive for rhinorrhea, but denies sinus pain, ear pain or sore throat. CARDIOVASCULAR: The patient had some left pleuritic chest pain, associated with cough, that is now resolved with Toradol. She has had dyspnea on exertion, exercise intolerance, and orthopnea. Denies palpitations or lower extremity edema. RESPIRATORY: She complains of cough and shortness of breath with thick green sputum and wheezing. Denies hemoptysis. GI: Denies nausea, vomiting, constipation, diarrhea or changes in stooling. MUSCULOSKELETAL: Denies joint pain or back pain. SKIN: Denies rash or skin changes. NEUROLOGIC: Denies slurred speech, focal weakness or altered mentation. PHYSICAL EXAMINATION: VITAL SIGNS: In the ED, presenting blood pressure 100/58, pulse 95, temperature 98.2, 96% O2 saturation on 2 L/min, and 8/10 pain, with decrease to blood pressure 79/56 with increase back to 141/57 after a 1 L normal saline bolus. On my exam, temp 98.7, pulse 95, respirations 20, O2 sat 96% on 2 L, and blood pressure 149/ 60. GENERAL: Well-developed, well-nourished female, in no acute distress, sitting up on the bedside with her legs below her nasal cannula in place. No apparent distress. HEENT: Normocephalic and atraumatic. Pupils equally round and reactive to light and accommodation, extraocular muscles intact. Nares are patent without discharge. Tongue protrudes in the midline. NECK: Supple without lymphadenopathy, thyromegaly, JVD or bruit. HEART: Regular rate and rhythm. Normal S1 and S2. No murmurs, clicks, rubs or gallops. LUNGS: Diminished air entry throughout with slight expiratory greater than inspiratory wheeze in all lung sebly with increased an expiratory to inspiratory ratio. No increased work of breathing. Speaking in complete sentences. GI: Abdomen with positive bowel sounds in all 4 quadrants. Soft, nontender, and nondistended. No masses, guarding or rebound tenderness. EXTREMITIES: No cyanosis, clubbing or edema. NEUROLOGIC: Cranial nerves 2 through 12 are grossly intact with generalized weakness of the extremities. SKIN: No rash. LABORATORY DATA: White count 17.5 with 85% neutrophils and 8% lymphocytes, hemoglobin 11.7, hematocrit 35.3, and platelets 259. Sodium 132, potassium 4.9, chloride 94, bicarb 27, BUN 15, creatinine 0.75, glucose 117, calcium 9.1, AST 19, ALT 20, alk phos 64, troponin I 0.024, BNP 78.8, albumin 3.8, and lactic acid 1.8. DIAGNOSTIC DATA: Chest x-ray with no acute findings. EKG with ER read at 92 beats per minute, normal sinus rhythm with comparison to previous EKG, similar with conduction normal, ST segments normal, T-waves normal , axis normal, LVH, possible old septal infarct, unchanged from previous. ASSESSMENT AND PLAN: 1. Acute exacerbation of chronic obstructive pulmonary disease with hypoxia without hypercapnia. The patient will be admitted, placed on IV Solu-Medrol. Antibiotics of Rocephin and azithromycin will be continued. We will give supportive O2 until the patient is back to her baseline. We will schedule nebs. We will give home maintenance therapy. Continues abstinence from smoking. We might try lower strength patch. 2. Hypotension. This seems to be resolved after her fluid bolus. She probably had an element of dehydration here with her reported decrease in p.o. intake. We will get a Armature Balancer consult due to the weight loss and to see if we have any options for help in the home to increase her p.o. intake. 3. Hyponatremia. The patient was given normal saline in the emergency department and we will follow this. We will give a p.o. free water restriction if we need to. 4. Left-sided pleuritic chest pain. The patient's cardiac workup is negative thus far and the pain is resolved with Toradol. We can repeat a dose if it recurs. We will try to control her cough. 5. Dyslipidemia. The patient will be continued on her statin medication. 6. Depression. The patient will be continued on her Lexapro. She would be a great candidate for [facility] if she had transportation. We have discussed this in the past. 7. Esophageal reflux. The patient will be continued on her PPI. 8. Deconditioning. We will get PT and OT to evaluate her while she is here. She would be a great candidate for pulmonary rehab. However, we have not been able to get her transportation to [place] for PFTs. We are still working on this as an outpatient. If that can be done, it is possible we can get pulmonary rehab here if we could arrange transportation through her [facility] Unfortunately, she does not live in [facility] and I do not know if that service is available for [facility]. She would do well with group home stay, so we could start that therapy here to prevent readmission. 9. Diastolic congestive heart failure. The patient was hypovolemic on admission and needed fluids. We will monitor her fluid status while hospitalized. 10. Hypertension. Her blood pressure is stable, and we will hold her lisinopril for right now secondary to the hypotensive episode she just experienced. 11. Normocytic anemia. This is chronic. 12. Prophylaxis. She is on a PPI. We will add SCDs. 13. Code status, the patient desires full code. Job ID: [id number] [facility]
--- NOTE | 2019-02-01 04:31 | PQF ---
[id number] ADELAIDA GALLAGHER CLINICAL DOCUMENTATION CLARIFICATION FORM: POST DISCHARGE Addendum to original discharge summary date: 01/08/19 Late entry note date: 02/01/19 DATE: 02/01/2019 ATTN:ADELAIDA GALLAGHER Please exercise your independent, professional judgment in responding to the clarification form. Clinical indicators are provided on the bottom of this form for your review Please check appropriate box(s): [ ] Acute Respiratory Failure: [ ] with Hypoxia[ ] with Hypercapnia [x ] Acute On Chronic Respiratory Failure: [ x ] with Hypoxia [ ] with Hypercapnia [ ] Acute Respiratory Failure due to: (etiology) [ ] ARDS (Acute Respiratory Distress Syndrome) [ ] Chronic Respiratory Failure only [ ] with Hypoxia [ ] with Hypercapnia [ ] Hypoxia [ ] Other diagnosis [ ] Unable to determine In addition, please specify: Present on Admission (POA): [ x ] Yes [ ] No [ ] Unable to determine For continuity of documentation, please document condition throughout progress notes and discharge summary. Thank You. CLINICAL INDICATORS - SIGNS / SYMPTOMS / LABS SOB for 3 days - Documented in H&P on 01/01 by Fauzia Shah DO Hypoxia without hypercapnia - Documented in H&P on 01/01 by Fauzia Shah DO O2 saturation 22 on 01/02 , 90 on 01/05 and 93 on 01/08 - Documented in Vital Signs Respiration Rate 22 on 01/01, 95 on 01/07 - Documented in Vital Signs RISK FACTORS Pneumonia COPD Exacerbation - Documented in DS on 01/08 by ADELAIDA GALLAGHER TREATMENTS: We will give O2 until the patient is back her baseline and we will schedule nebs - Documented in H&P on 01/01 by Leubner Alyssa DO Oxygen Delivery - Nasal Cannula on 01/01 to 01/08 Continue abstinence from smoking [employer] 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 All Rights Reserved [email or web address] [not provided] MTDD
== END 2019-01-08 15:24 | disposition home or self-care (01) | DRG 193 ==
LOC: BURERS 07:42 → OBSVTOIN 08:55 → BURMED 08:55
PROVIDERS: ADMIT Family Medicine; ATTEND Family Medicine
DX: J18.9 Pneumonia, unspecified organism (principal); J96.21 Acute and chronic respiratory failure with hypoxia; J44.1 Chronic obstructive pulmonary disease with (acute) exacerbation; I50.32 Chronic diastolic (congestive) heart failure; E87.1 Hypo-osmolality and hyponatremia; C64.9 Malignant neoplasm of unspecified kidney, except renal pelvis; J44.0 Chronic obstructive pulmonary disease with (acute) lower respiratory infection; R53.1 Weakness; K59.00 Constipation, unspecified; Z99.81 Dependence on supplemental oxygen; R53.81 Other malaise; D72.829 Elevated white blood cell count, unspecified; Z87.891 Personal history of nicotine dependence; E78.5 Hyperlipidemia, unspecified; F32.9 Major depressive disorder, single episode, unspecified; I11.0 Hypertensive heart disease with heart failure; K21.9 Gastro-esophageal reflux disease without esophagitis; Z90.49 Acquired absence of other specified parts of digestive tract; Z98.51 Tubal ligation status; Z88.8 Allergy status to other drugs, medicaments and biological substances; E87.5 Hyperkalemia
CPT/HCPCS: 36415; 36416; 71045; 71046; 74022; 80048; 80053; 82565; 83605; 83880; 84484; 85014; 85018; 85025; 85049; 93005; 94664; 96361; 96365; 96375; J0456; J0696; J1650; J1885; J2930; J3490; J7050; J7512; J7620; Q0162; Q0169

== ENCOUNTER 2019-02-25 09:00 | Outpatient (CLI) | payer MEDICARE ==
--- NOTE | 2019-02-25 13:04 | CT ---
CT OF THE BRAIN WITH AND WITHOUT CONTRAST: DATE: 02/25/2019. FINDINGS: The study was initially done without IV contrast and then with for this patient having recurrent head aches, left facial numbness, and tinnitus, loss of appetite, and weight loss. There were no prior sc ans available for comparison. The ventricles are normal in size for age and atrophy and show no shift. No intracranial bleeding, m ass, edema, or sign of acute stroke was found. Once IV contrast was given, there were no enhancing l esions seen. The major vessels around the [place] all filled well with contrast. The skull is normal in appearance. The visible portions of the paranasal sinuses are clear. The mas toid air cells are slightly under aerated bilaterally, more so on the right. Each IAC seems normal i n width. No abnormalities in the posterior fossa were identified. IMPRESSION: No significant intracranial findings. POS: HOME
== END 2019-02-25 09:01 | disposition home or self-care (01) ==
LOC: BURCT 09:00
PROVIDERS: ATTEND Family Medicine
DX: Z01.818 Encounter for other preprocedural examination (principal); R41.89 Other symptoms and signs involving cognitive functions and awareness
CPT/HCPCS: 36415; 70470; 82565